=== PATIENT | female | born 1930 | race Caucasian/White ===

== ENCOUNTER → 2016-12-06 | Outpatient (CLI) | payer BC ==
[~2016-12-06] MED LIST: ACET-749 PO; CALC12502 PO; MULT-845 PO; OMEG10007 PO
--- NOTE | 2016-12-06 12:41 | MAMMOGRAPHY REPORT ---
BILATERAL DIGITAL SCREENING MAMMOGRAM WITH CAD: 12/06/2016 CLINICAL HISTORY: Routine screening. Patient has no complaints. TECHNIQUE: Current study was also evaluated with a Computer Aided Detection (CAD) system. Bilatera l CC and MLO views were obtained. COMPARISON: Comparison is made to exams dated: 12/04/2015 mammogram, 12/03/2014 mammogram, 12/21/2013 ultrasound, 06/21/2013 ultrasound, 12/21/2012 ultrasound, and 12/21/2013 mammogram - [facility]. BREAST COMPOSITION: The tissue of both breasts is heterogeneously dense, which may obscure small ma sses. FINDINGS: No suspicious masses, calcifications, or areas of architectural distortion are noted in e ither breast. There has been no significant interval change compared to prior exams. Bilateral lakesha gn-appearing calcifications are not significantly changed. Asymmetry in the left central breast is not significantly changed and consistent with postsurgical changes. IMPRESSION: ACR BI-RADS CATEGORY 2: BENIGN There is no mammographic evidence of malignancy. A 1 year screening mammogram is recommended. The p atient will receive written notification of the results. Approximately 10% of breast cancers are not detected with mammography. A negative mammographic repor t should not delay biopsy if a clinically suggestive mass is present. Desi Menezes M.D. /:12/06/2016 12:20:21 Gas Pumper: Ana Lilia Montgomery, [facility] letter sent: Normal 1/2 BI-RADS Code: ACR BI-RADS Category 2: Benign
== END | disposition home or self-care (01) ==
LOC: C.MAMM 10:23
PROVIDERS: ATTEND Internal Medicine Geriatric Medicine
DX: Z12.31 Encounter for screening mammogram for malignant neoplasm of breast (principal)

== ENCOUNTER → 2017-02-09 | Outpatient (CLI) | payer BC ==
[2017-02-09 17:28] LABS: URINE APPEARANCE TURBID (CLEAR); URINE BILIRUBIN NEG (NEG); URINE COLOR YELLOW; URINE NITRITE POS (NEG); URINE SPECIFIC GRAVITY 1.009 (1.000-1.030); UROBILINOGEN NEG (NEG)
[2017-02-09 17:37] LABS: MANUAL MICROSCOPIC REQUIRED? NO; REVIEW REQ? YES
== END | disposition home or self-care (01) ==
LOC: C.LABBC 11:17
PROVIDERS: ATTEND Internal Medicine
DX: R39.9 Unspecified symptoms and signs involving the genitourinary system (principal); N39.0 Urinary tract infection, site not specified; A49.8 Other bacterial infections of unspecified site

== ENCOUNTER → 2017-03-02 | Outpatient (CLI) | payer BC ==
--- NOTE | 2017-03-03 06:27 | PAP/PSG TECHNICIAN REPORT ---
[facility] Metal Storage Worker Polysomnogram Report Study name: None Report date: 03/03/2017 Study date: 03/02/2017 Referring Physician: THANG SAHNI M.D. Name: IVY RENDON Interpreting Physician: Main Rivera M.D. Date of : 1930 Metal Storage Worker: Aviva Lovell RPSGT. Sex: Female Age: 86 Study Type: PSG PAP Weight: 142 lbs Height: 86 years, Height 5' 6" BMI: 22.92 Medications: CALCIUM 500 MG, VIT D3 1000 UNIT, CRANBERRY 4200 MG, STOOL SOFTENER, FISH OIL 1000 MG, CENTRUM SILVER, MIRALAX, SYSTANE EYEDROPS, MELATONIN 10 MG Patient History 86 yr-old female here for a new CPAP treatment study. She was found to be positive for mild ABDIRASHID via a home sleep study in January 2016. Her AHI was 6.9. She chose an AirFit F10 full face mask size medium from [employer]. The test was started on room air and 4 CMH2O. ETCO2 testing was not utilized during this study. Room 7 Parameters Monitored NPSG: E1-M2, E2-M1, Fp1-M2, Fp2-M1, F3-M2, F4-M2, F4-M1, C3-M2, C4-M2, C4-M1, O1-M2, O2-M2, O2-M1, T3-M2, T4-M1, P3-M2, P4-M1, CHIN1, CHIN2, HR, EKG, Legs, PFLOW, SNOR, FLOW, CFLOW, Tidal Volume, THOR, ABDO, SpO2, PLTH, CPRESS, ETCO2 Wave, ETCO2, pH Sleep Architecture Sleep Stages Time at Lights Off 11:15:31 PM STAGES Time (min.) TST (%) Time at Lights On 5:32:01 AM Wake 182.0 -- Total Recording Time (TRT) 376.50 min. N1 30.5 16 Total Sleep Period (TSP) 364.0 min. N2 118.0 61 Total Sleep Time (TST) 194.5min. N3 7.5 4 Awake Time 182.0 min. REM 38.5 20 Wake after Sleep Onset 169.5 min. Sleep Efficiency (SE) 52 % Sleep Onset Latency (JOSEPH) 12.5 min. Number of Stage 1 Shifts None Awakenings 13 Stage Changes 73 Number of REM periods 2 REM 38.5 20 REM Latency 58.5 min. NREM 156.0 80 Body Position Analysis Supine Right Left Side Prone Vertical Total Sleep Time (min.) 55.2 0.0 194.0 194.00 0.0 0.0 Total Sleep Time (%) 0% 0% 100% 100 0% N/A% Total Sleep Time REM (min.) 0.0 0.0 38.5 None 0.0 0.0 Total Sleep Time NREM (min.) 0.5 0.0 155.5 None 0.0 0.0 Intermittent Wake (min.) 54.7 0.0 127.1 None 0.0 0.0 Total Sleep Period (%) 15% None None None None None Arousals Myoclonus (PLM) * Events Count Index Events Count Index Spontaneous 12 4 Events Awake (PLMW) 115 37.9 Respiratory 16 5.9 Events Asleep w/ Arousal (PLMA) 13 4.0 PLM 13 4 Events Asleep w/o Arousal (PLMS) 62 19.1 Snoring 4 1 Total Asleep 75 23.1 Total 45 14 Total 190 30 Respiratory Analysis * CA OA MA CH H RERA Total Count 0 7 0 0 3 11 10 Index 0.0 2.2 0.0 0 0.9 3 6.5 Mean Duration 0.0 26.6 0.0 0.00 41.2 17.2 23.8 Longest Duration 0.0 36.4 0.0 0.00 0.0 22.5 46.9 Respiratory Event Summary Total Supine ~Supine Right Left Prone REM NREM Apneas Count 7 1 6 N/A 6 N/A 0 7 Index 2.2 120 2 N/A 1.9 N/A 0 3 Hypopneas (4% Desat) Count 3 0 3 N/A 3 N/A 0 3 Index 0.9 0.0 1 N/A 0.9 N/A 0.0 1.2 Apneas & All Hypopneas Count 10 1 9 N/A 9 N/A 0 10 Index 3.1 120 3 N/A 3 N/A 0.0 3.8 Respiratory Events (Produce Inspector+All Hyp+RERA) Count 10 1 20 N/A 20 N/A 0 10 Index 6.5 120 6 N/A 6.2 N/A 1.6 7.7 Respiratory Related Arousal Count 16 1 18 N/A 18 N/A 1 18 Index 5.9 120 6 N/A 6 N/A 2 7 Snoring Analysis Supine Right Left Prone REM NREM Total Snore duration 11.5 min Snores count 2 N/A 454 N/A 14 442 456 Snore mean duration 1.5 Sec Snores index 240 N/A 140 N/A 21.8 170.0 140.7 TST with snoring (%) 5.9% Desaturation Event Summary: Minimum %SpO2 Event Count Mean/Min/Max Duration(sec.) Desaturation Index % Time In Bed > 90 8 32.1 / 24.3 / 40.5 1.3 99.8 86 - 90 0 N/A 0.0 0.2 81 - 85 0 N/A 0.0 0.0 76 - 80 0 N/A 0.0 0.0 71 - 75 0 N/A 0.0 0.0 66 - 70 0 N/A 0.0 0.0 61 - 65 0 N/A 0.0 0.0 56 - 60 0 N/A 0.0 0.0 51 - 55 0 N/A 0.0 0.0 < 50 0 N/A 0.0 0.0 Total REM NREM Awake <50% 0.0 min. 0.0 min. 0.0 min. 0.0 min. 51 - 60% 0.0 min. 0.0 min. 0.0 min. 0.0 min. 61 - 70% 0.0 min. 0.0 min. 0.0 min. 0.0 min. 71 - 80% 0.0 min. 0.0 min. 0.0 min. 0.0 min. 81 - 90% 0.8 min. 0.0 min. 0.5 min. 0.3 min. 91 - 100% 368.9 min. 38.5 min. 155.5 min. 174.9 min. Average 95 95 95 95 Minimum SpO2 89 93 89 90 Desaturation Event Index 1.3 0.0 3.1 0.0 # Desat. Events below 89% N/A N/A N/A N/A Time(%) with Saturation below 89% 0.0 0.0 0.0 0.0 Time(min.) with Saturation below 89% 0.0 0.0 0.0 0.0 Time (mins) REM (mins) NREM (mins) % of TST SpO2 Below 90% 3 N/A N3 0.0 SpO2 Below 88% 0 0 0 0 Heart Rate Analysis Min (bpm) Max (bpm) Average (bpm) Awake 57 75 65 NREM 56 74 64 REM 60 75 63 Overall 56 75 64 Supplemental O2 Values Minimum O2 level: None Value Start Time End Time Metal Storage Worker Comments Ms. Rendon slept in the left and supine positions. No cardiac arrhythmias were noted. PLMs were noted. No bruxism noted. CPAP was initiated at +4 CMH2O and up-titrated to a level of +9 CMH2O, Cflex 2. An AirFit F10 full face mask size medium from [employer] was used during titration. She awoke to use the restroom one time during the night. Ms. Rendon stated that she did not sleep as well as usual. The final report will be interpreted and signed by a sleep physician. The completed physician report will then be placed in the patient medical record Therapy Event: Therapy (cm H20) 4 5 6 8 9 Total Time at Pressure (min.) 17.5 262.0 24.8 9.4 62.8 TST at Pressure (min.) 5.0 95.5 24.3 8.9 60.8 # Periods 1 1 1 1 1 Sleep Onset (min.) 12.5 0.0 0.5 0.0 0.0 REM Onset (min.) N/A 53.5 N/A N/A 12.8 Sleep Efficiency % 28 36 98 94 96 Wakefulness (%) 71.6 63.5 2.0 5.3 3.2 Wakefulness (min.) 12.5 166.5 0.5 0.5 2.0 NREM 1 (%) 11.4 6.3 19.3 34.4 6.4 NREM 1 (min.) 2.0 16.5 4.8 3.2 4.0 NREM 2 (%) 17.0 22.9 72.7 60.3 49.9 NREM 2 (min.) 3.0 60.0 18.0 5.7 31.3 NREM 3 (%) 0.0 0.4 6.1 0.0 8.0 NREM 3 (min.) 0.0 1.0 1.5 0.0 5.0 REM (%) 0.0 6.9 0.0 0.0 32.6 REM (min.) 0.0 18.0 0.0 0.0 20.5 # Arousals 1 21 8 6 9 Arousal Index 12.1 13.2 19.8 40.5 8.9 # Snore 15 308 103 15 15 Snore Index 181.1 193.4 254.6 101.3 14.8 AHI 0.0 0.6 9.9 33.8 0.0 AHI Supine N/A 120.0 N/A N/A N/A AHI Non-Supine 0.0 0.0 9.9 33.8 0.0 NREM AHI 0.0 0.8 9.9 33.8 0.0 REM AHI N/A 0.0 N/A N/A 0.0 RDI 0.0 6.9 12.4 33.8 0.0 # Obstructive 0 1 4 2 0 # Central Ap 0 0 0 0 0 # Mixed 0 0 0 0 0 # Hypopneas 0 0 0 3 0 RERAS 0 10 1 0 0 Total Respiratory Events 0 11 5 5 0 Time Below SpO2 89.00% (min.) 0.0 0.0 0.0 0.0 0.0 Mean NREM SpO2 (%) 94 94 94 95 95 Mean REM SpO2 (%) N/A 95 N/A N/A 94 Mean Sleep SpO2 (%) 94 95 94 95 95 Min NREM SpO2 (%) 92 92 89 90 93 Min REM SpO2 (%) N/A 94 N/A N/A 93 Position Supine (min.) 0.0 0.5 0.0 0.0 0.0 Position Non-supine (min.) 5.0 95.0 24.3 8.9 60.8 LM Index Sleep 12.1 19.5 47.0 27.0 19.7 LM Index NREM 12.1 22.4 47.0 27.0 28.3 LM Index REM N/A 6.7 N/A N/A 2.9 Mean Heart Rate (bpm) 65 65 63 60 63 Min Heart Rate (bpm) 64 58 58 56 57
--- NOTE | 2017-03-04 11:50 | POLYSOMNOGRAPH REPORT ---
CLINICAL DATA: 86-year-old female with BMI of 29.[address] Romero Vera for a CPAP study. She recently had a home sleep study which showed mild sleep apnea with an NANCY of 6.9. SLEEP ARCHITECTURE: Total sleep period was 364 minutes. Total sleep time was 194.5 minutes divided between 156 minutes of non-REM sleep and 38.5 minutes of REM sleep. Sleep onset latency was 12.5 minutes. REM latency was 58.5 minutes. Sleep efficiency was 52%. Wake after sleep onset was markedly elevated at 169.5 minutes. Sleep consisted of stage N1 16%, N2 61%, N3 4%, and REM 20%. AROUSAL DATA: 45 arousals were recorded for an index of 14 per hour. PLM DATA: 75 limb movements during sleep were noted for an index of 22.1 per hour with an arousal index of 4 per hour. RESPIRATORY DATA: The AHI was 3.1. There were 3 hypopneic episodes. The mean duration of hypopnea was 41.2 seconds. OXIMETRY DATA: No hypoxemia was seen. Oxygen anette was 89%. Mean saturation was 95%. EKG: Heart rates ranged from 56-75 beats per minute. No arrhythmias were noted. CARE SERVICES MANAGER'S COMMENTS AND TREATMENT SUMMARY: The patient slept in the left and supine positions. She used an AirFit F10 full face mask size medium from [employer]. She was titrated up to 9 cm of water pressure, C-Flex setting #2. At her final pressure setting, she slept for 60.8 minutes with an AHI of 0. IMPRESSION: Mild sleep apnea/hypopnea corrected with CPAP 9 cm of water pressure, C-Flex setting #2, AirFit F10 full face mask size medium from [employer]. RECOMMENDATIONS: The patient could be started on the above noted treatment regimen and seen back in followup within 90 days to document efficacy and compliance. Clinical correlation is needed. [facility]
== END | disposition home or self-care (01) ==
LOC: C.NEUR 21:00
PROVIDERS: ATTEND Internal Medicine Geriatric Medicine
DX: G47.30 Sleep apnea, unspecified (principal)

== ENCOUNTER → 2017-12-14 | Outpatient (CLI) | payer BC ==
--- NOTE | 2017-12-15 14:04 | MAMMOGRAPHY REPORT ---
BILATERAL DIGITAL SCREENING MAMMOGRAM TOMOSYNTHESIS WITH CAD: 12/14/2017 CLINICAL HISTORY: Routine screening. Patient has no complaints. TECHNIQUE: Breast tomosynthesis in addition to standard 2D mammography was performed. Current study was also evaluated with a Computer Aided Detection (CAD) system. COMPARISON: Comparison is made to exams dated: 12/06/2016 mammogram, 12/04/2015 mammogram, 12/03/2014 m ammogram, 12/21/2013 ultrasound, 12/21/2013 mammogram, and 06/21/2013 ultrasound - [facility]. BREAST COMPOSITION: The tissue of both breasts is heterogeneously dense, which may obscure small mas ses. FINDINGS: There is a focal asymmetry in the 6:00 middle one third of the left breast, with subtle ass ociated architectural distortion. This was previously worked up in 2012 and 2013 and felt to represe nt postsurgical scarring. Additionally, reports from prior stereotactic biopsy and needle localizati on including surgical specimen from excisional biopsy performed in December and January 2007 described a l esion in the 6:00 left breast which was surgically excised. This is felt to be concordant with the p rior surgical excision and represent postsurgical scarring. Additionally, when comparing back to ashley or available 2-D views this asymmetry is stable dating back to at least 2008. No new suspicious mass , architectural distortion or cluster of microcalcifications is seen. IMPRESSION: ACR BI-RADS CATEGORY 1: NEGATIVE There is no mammographic evidence of malignancy. A 1 year screening mammogram is recommended. The pa tient will receive written notification of the results. Approximately 10% of breast cancers are not detected with mammography. A negative mammographic report should not delay biopsy if a clinically suggestive mass is present. Kendy Vivar M.D. ay/:12/14/2017 16:20:22 Progress Clerk: Ana Lilia Montgomery, [facility] letter sent: Normal /2 BI-RADS Code: ACR BI-RADS Category 1: Negative
== END | disposition home or self-care (01) ==
LOC: C.MAMM 13:46
PROVIDERS: ATTEND Internal Medicine Geriatric Medicine
DX: Z12.31 Encounter for screening mammogram for malignant neoplasm of breast (principal)

== ENCOUNTER → 2018-02-27 | Outpatient (CLI) | payer BC ==
[2018-02-27 17:23] LABS: BASO % 0.2 %; BASO ABS # 0.01 K/uL (0-0.2); EOS % 5.4 %; HEMATOCRIT 36.9 % (37-47); HEMOGLOBIN 12.2 g/dL (12.0-16.0); IG# 0.01 K/uL (0.00-0.02); LYMPH % 31.1 %; LYMPH ABS # 1.74 K/uL (1.2-3.4); MEAN CELL VOLUME 93.2 fL (80-100); MEAN CORPUSCULAR HEMOGLOBIN 30.8 pg (25-34); MEAN CORPUSCULAR HGB CONC 33.1 g/dl (32-36); MEAN PLATELET VOLUME 9.6 fL (7.4-10.4); MONO ABS # 0.39 K/uL (0.11-0.59); NEUT % 56.1 %; NEUT ABS # 3.15 K/uL (1.4-6.5); PLATELET COUNT 235 K/uL (130-400); RED CELL DISTRIBUTION WIDTH CV 14.3 % (11.5-14.5); RED CELL DISTRIBUTION WIDTH SD 48.5 fL (36.4-46.3)
[2018-02-27 19:14] LABS: BLOOD UREA NITROGEN 18 mg/dl (7-18); CALCIUM 8.5 mg/dl (8.5-10.1); CARBON DIOXIDE 30 mmol/L (21-32); CREATININE 0.85 mg/dl (0.60-1.20); GLUCOSE 102 mg/dl (70-99); POTASSIUM 3.7 mmol/L (3.5-5.1); SODIUM 139 mmol/L (136-145)
== END | disposition home or self-care (01) ==
LOC: C.LABBC 14:14
PROVIDERS: ATTEND Internal Medicine Geriatric Medicine
DX: Z00.00 Encounter for general adult medical examination without abnormal findings (principal); R41.81 Age-related cognitive decline; G47.30 Sleep apnea, unspecified; I10 Essential (primary) hypertension

== ENCOUNTER → 2018-03-02 | Outpatient (CLI) | payer BC ==
[~2018-03-02] MED LIST changes: -ACET-749 PO; +ACET300T3 PO
== END | disposition home or self-care (01) ==
LOC: C.LABBC 09:39
PROVIDERS: ATTEND Internal Medicine Geriatric Medicine
DX: R39.9 Unspecified symptoms and signs involving the genitourinary system (principal)

== ENCOUNTER → 2018-03-14 | Outpatient (CLI) | payer BC | END | disposition home or self-care (01) | LOC: C.LAB 16:57 | PROVIDERS: ATTEND Internal Medicine Geriatric Medicine | DX: N39.0 Urinary tract infection, site not specified (principal) ==

== ENCOUNTER → 2018-06-14 | Outpatient (CLI) | payer BC | END | disposition home or self-care (01) | LOC: C.LAB 18:35 | PROVIDERS: ATTEND Physician Assistant Medical | DX: R39.9 Unspecified symptoms and signs involving the genitourinary system (principal) ==

== ENCOUNTER 2019-07-25 19:15 | Inpatient (IN) ==
[2019-07-25] MEDS ORDERED: MoRPHine SULFATE 4 MG/ML 1 ML CARP\\VIAL IV STA (19:30)
[2019-07-25] MEDS ORDERED: ONDANSETRON INJ 2 MG/ML 2 ML VIAL IV STA (19:30)
[2019-07-25] MEDS ORDERED: SODIUM CHLORIDE 0.9% 1000ML 500 ML IV ONE ×2 (19:30→20:14)
[2019-07-25] MEDS ORDERED: dilTIAZem HCl 5 MG/ML 5 ML VIAL IV STA (19:42)
[2019-07-25] MEDS ORDERED: dilTIAZem HCL 125 MG in DEXTROSE 5% 100 ML IV SCH (19:45)
[2019-07-25 20:09] LABS: iSTAT Creatinine 1.1 mg/dl (0.6-1.3); iSTAT Hemoglobin 12.2 g/dl (12.0-16.0); iSTAT Ionized Calcium 1.16 mmol/l (1.12-1.32); iSTAT Potassium 4.7 mEq/L (3.3-5.0)
[2019-07-25 20:18] LABS: Hematocrit (blood only) 35.7 % (37-47); Hemoglobin 12.3 g/dL (12.0-16.0); Lymphocytes # (auto) 0.61 K/uL (1.2-3.4); Lymphocytes % (auto) 9.7 %; Mean Corpuscular Hemoglobin 32.3 pg (25-34); Mean Corpuscular Hgb Conc 34.5 g/dL (32-36); Mean Corpuscular Volume 93.7 fL (80-100); Mean Platelet Volume 9.1 fL (7.4-10.4); Monocytes # (auto) 0.08 K/uL (0.11-0.59); Monocytes % (auto) 1.3 %; Neutrophils # (auto) 5.58 K/uL (1.4-6.5); Platelet Count 341 K/uL (130-400); RDW Coefficient of Variation 13.5 % (11.5-14.5); RDW Standard Deviation 46.3 fL (36.4-46.3); Red Blood Count 3.81 M/uL (4.2-5.4); White Blood Count 6.27 K/uL (4.8-10.8)
[2019-07-25 20:20] LABS: Partial Thromboplastin Time 26.1 Seconds (21.0-31.0); Prothrombin Time 10.3 Seconds (9.0-12.0)
[2019-07-25 20:29] LABS: BUN Creatinine Ratio 19.7 (10-20); Blood Urea Nitrogen 24 mg/dl (7-18); Calcium 9.4 mg/dl (8.5-10.1); Carbon Dioxide 25 mmol/L (21-32); Chloride 101 mmol/L (98-107); Est GFR (Non-African American) 38.9; Glucose 231 mg/dl (70-99); Lipase 195 U/L (73-393); Potassium 4.5 mmol/L (3.5-5.1); Sodium 135 mmol/L (136-145)
[2019-07-25 20:34] LABS: Troponin I 0.019 ng/ml (0-0.045)
[2019-07-25] MEDS ORDERED: OPTIRAY 320 125ml IV PRN (21:13)
--- NOTE | 2019-07-25 21:15 | XRay Report ---
SINGLE VIEW CHEST CLINICAL HISTORY: Atypical chest pain. FINDINGS: 2 AP, portable, upright chest radiographs are compared to study dated 07/17/2019. The examin ation is degraded by portable technique and patient rotation. The heart is mildly enlarged. The pulmo nary vasculature is noncongested. Calcified mediastinal lymph nodes are again noted. Chronic intersti tial thickening is similar to previous. There is bibasilar atelectasis. No airspace consolidation or large pleural effusion is identified. A calcified granuloma is again seen at the left apex. No pneumo thorax is seen. The skeletal structures are osteopenic. The bony thorax is grossly intact. IMPRESSION: Mild cardiomegaly with no acute cardiopulmonary abnormality. Electronically signed by: Piter Bean M.D. 07/25/2019 9:13 PM
[2019-07-25] MEDS ORDERED: IOVERSOL 100ml IV PRN (21:37)
--- NOTE | 2019-07-25 21:40 | CT Scan Report ---
CT ANGIOGRAM OF THE CHEST CLINICAL HISTORY: Right-sided chest pain. COMPARISON STUDY: Chest x-ray dated 07/25/2019. TECHNIQUE: Following the IV administration of 119 cc of Optiray 320, CT angiogram of the chest was pe rformed from the upper abdomen to the thoracic inlet utilizing the pulmonary embolus protocol. Images are reviewed in the axial, sagittal, and coronal planes. 3-D MIPS images are created and assessed. I V contrast was administered without complication. A dose lowering technique was utilized adhering to the principles of ALARA. CT DOSE: 249.41 mGy.cm FINDINGS: Thyroid: Imaged portions of the thyroid gland are normal in size and attenuation. Thoracic aorta: There is atherosclerotic calcification of the thoracic aorta, which is normal in gay michelle and demonstrates 4-vessel variant arch anatomy. 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 No dissection is seen. Pulmonary vasculature: The pulmonary trunk is normal in caliber. There are no filling defects identif ied in main, lobar, or segmental pulmonary branches to suggest pulmonary embolus. Heart: The heart is mildly enlarged and without pericardial effusion. There are coronary artery calci fications. Lungs and pleural spaces: There is no airspace consolidation, pleural effusion, or pneumothorax. The trachea and central airways are clear. Foci of scarring/atelectasis are present at both lung bases. T here are numerous calcified granulomas. There is a pathologically indeterminant 8 mm pulmonary nodule in the left lower lobe seen on image #117. Mediastinum: There are numerous calcified mediastinal lymph nodes. No mediastinal adenopathy is seen. Zohreh: Clear. Axillae: There is no axillary lymphadenopathy. Upper abdomen: There are calcified granulomas present in the liver and spleen. Partially visualized u pper abdominal viscera is otherwise grossly unremarkable. Skeletal structures: The skeletal structures are osteopenic. There is a moderate and acute appearing compression fracture of T8. There is associated paravertebral edema. No retropulsed fragments are zee ntified. A moderate and age indeterminant compression deformity of T10 is also noted. Degenerative ch leroy and kyphoscoliosis are noted in the thoracic spine. No lytic or blastic bony lesions are seen. Soft tissues: There are indeterminant foci of gas within the right paraspinous musculature. No inflam matory change or fluid collection is identified. IMPRESSION: 1. There is no evidence of pulmonary embolus in the main, lobar, or segmental pulmonary arteries. 2. There is no airspace consolidation, pleural effusion, or pneumothorax. 3. There is a moderate and acute appearing compression fracture of T8. Paravertebral edema is noted a t this level. No retropulsed fragments are identified. 4. A moderate compression deformity of T10 is age indeterminant. 5. There are tiny foci of gas within the right paraspinous musculature, possibly related to the recen t compression fracture. No inflammatory change or fluid collection is seen. 6. There is an 8 mm pathologically indeterminant pulmonary nodule at the left lung base. Consider pre cautionary follow-up as per the Fleischner criteria. See below. 7. An aberrant right subclavian artery is incidentally noted. 8. Additional findings as above. Please refer to below summary of Fleischner criteria recommendations for follow-up of incidental CT n odules (Yanni Ernst, Guidelines for management of small pulmonary nodules detected on CT scans: A sta tement from the Fleischner Society, Radiology 237: [phone].) SOLID NODULES Solitary nodule size: <6 mm * low risk patients: no follow-up needed * high risk patients: optional CT at 12 months Solitary nodule size: 6-8 mm * low risk patients: follow-up at 6-12 months, then consider further follow-up at 18-24 months * high risk patients: initial follow-up CT at 6-12 months and then at 18-24 months if no change Solitary nodule size: >8 mm * either low or high risk patients - consider follow-up CT at 3 months, and/or CT-PET, and/or biopsy Multiple nodules size: <6 mm * low risk patients: no routine follow-up * high risk patients: optional CT at 12 months Multiple nodules size: 6-8 mm * low risk patients: follow-up at 3-6 months, then consider further follow-up at 18-24 months * high risk patients: follow-up at 3-6 months, then at 18-24 months if no change Multiple nodules size: >8 mm * low risk patients: follow-up at 3-6 months, then consider further follow-up at 18-24 months * high risk patients: follow-up at 3-6 months, then at 18-24 months if no change Note: newly detected indeterminate nodule in persons 35 years of age or older. * low risk patients: minimal or absent history of smoking and/or other known risk factors * high risk patients: history of smoking or of other known risk factors (e.g. first degree relative with lung cancer, or exposure to asbestos, radon, uranium) * if a nodule up to 8 mm is partly solid or is ground glass further follow-up is required after 24 m onths to exclude possible slow growing adenocarcinoma ([place]) SUBSOLID NODULES Solitary pure ground-glass nodule * nodule size <6 mm - no CT follow-up required * nodule size >=6 mm - follow-up CT at 6-12 months, then every 2 years until 5 years Solitary part-solid nodule * nodule size <6 mm - no CT follow-up required * nodule size >=6 mm - follow-up CT at 3-6 months. If unchanged, and solid component remains <6 mm, then annual follow-up for 5 years Multiple subsolid nodules * nodule size <6 mm - follow-up CT at 3-6 months, consider further follow-up at 2 and 4 years if sta ble * nodule size >=6 mm - follow-up CT at 3-6 months, subsequent management based on the most suspiciou s nodule(s) Electronically signed by: Piter Bean M.D. 07/25/2019 9:38 PM
[2019-07-25] MEDS ORDERED: HEPARIN SOD 5,000 UNIT/0.5 ML VIAL ONE (22:23)
[2019-07-25] MEDS: HEPARIN SODIUM/DEXTROSE 25,000 UNITS/500 ML BAG IV SCH (22:56)
--- NOTE | 2019-07-25 23:04 | History & Physical Report ---
Date of Service July 25, 2019 Assessment & Plan (1) Atrial fibrillation with RVR: Ms. Rendon is a very pleasant 89 year old female with a past medical history of T8 and T10 compression fractures, osteoarthritis, aortic regurgitation, breast cancer s/p lumpectomy who presents to the emergency department due to intractable back pain, and was incidentally found to be in atrial fibrillation. ED course: 1L NS bolus, 10mg IV cardizem, heparin drip Atrial Fibrillation -admit to telemetry -no hx of prior -received 10mg IV cardizem in ED which improved HR -5mg IV Lopressor prn HR >120 -ECHO ordered -potassium level 4.5, magnesium level ordered for AM -CHADS-VASc score is 3 - pt would benefit from anticoagulation -heparin drip initiated in ED, will continue this T8 and T10 compression fractures -seen on CTA today -pain control with lidocaine patches, voltaren gel, and scheduled tylenol -consider addition of prn tramadol if above regimen is ineffective AUSTYN -creatinine increased from baseline of <1 to 1.23 -potentially related to poor p.o. intake plus NSAIDs (pt taking Aleve daily due to back pain) -avoid nephrotoxic agents, continue to monitor Constipation -continue home daily miralax (increase to BID), and colace -milk of mag prn Pulmonary Nodule -seen incidentally on CTA today -> 8mm in lower left lobe -discussed w/patient -pt is low risk given no smoking hx -> per Fleischner criteria -> "follow-up at 6-12 months, then consider further follow-up at 18-24 months" Hypertension -listed on chart, however pt not on medications for this Hx of Insomnia -pt reports she does not like to take her home trazodone Code status: FULL DVT Prophylaxis: on heparin drip Disposition: admit to telemetry (2) Acute thoracic back pain: (3) Age-related cognitive decline: (4) Aortic regurgitation: (5) Gastroesophageal reflux disease: (6) Hypertension: (7) Insomnia: (8) Compression fracture: History of Present Illness Chief Complaint: Afib, back pain Primary Care Provider: Elliot Vera MD Ms. Rendon is a very pleasant 89 year old female with a past medical history of T8 and T10 compression fractures, osteoarthritis, aortic regurgitation, breast cancer s/p lumpectomy who presents to the emergency department due to intractable back pain, and was incidentally found to be in atrial fibrillation. She reports that she saw today for her compression fractures, who administered an injection into her back for this, and prescribed lidocaine patches. She reports that the pain from her compression fractures began approximately 3 weeks ago, the morning after she washed the windows of her house. She states that in addition to the lidocaine patches, she has been using Aleve daily for the past 1 week, as well as extra strength Tylenol, however is struggling with the level of pain she is in. She reports decreased appetite due to the pain. She denies a prior history of atrial fibrillation. She denies chest pain, palpitations, and states that she has no prior history of an DE. She does report that her neighbor thought she was more short of breath recently. She denies fever, chills, or cough. She does endorse constipation, and states that she is still having difficulty with this despite taking miralax and colace daily. Past medical history: T8 and T10 compression fractures, osteoarthritis, aortic regurgitation, breast cancer s/p lumpectomy in 2006 Past surgical history: Bladder prolapse surgery, hysterectomy Medications: Tylenol, calcium and vitamin D, cranberry, Colace, multivitamin, MiraLAX Allergies: Penicillin Social history: Lives at home with her . Non-smoker, no recreational drugs. Occasional glass of keesha before bedtime for sleep. Allergies Allergy/AdvReac Type Severity Reaction Status Date / Time codeine Allergy Severe GI SYMPTOMS Verified 07/25/19 20:37 Penicillins Allergy Severe ANAPHYLAXIS Verified 07/25/19 20:37 Home Medications Home Medications Medication Instructions Recorded Confirmed Type acetaminophen 500 mg tablet 1,000 mg PO TID PRN #90 tab 04/10/19 07/25/19 History calcium carbonate 500 mg (1,250 1 tab PO BID tab 04/10/19 07/25/19 History mg)-vitamin D3 200 unit tablet cholecalciferol (vitamin D3) 1,000 1,000 units PO DAILY #90 cap 04/10/19 07/25/19 History unit capsule garlic 1,000 mg capsule 1,000 mg PO DAILY 04/10/19 07/25/19 History multivit with 1 tab PO DAILY 04/10/19 07/25/19 History zomabgro-sehe-TU-lutein 8 mg iron-400 mcg-300 mcg tablet polyethylene glycol 3350 17 17 gm PO QPM gm 04/11/19 07/25/19 History gram/dose oral powder trazodone 50 mg tablet 25 mg PO HS PRN #30 tab 04/11/19 07/25/19 History docusate sodium 100 mg capsule 100 mg PO TID cap 04/16/19 07/25/19 History cranberry 450 mg PO TID 07/25/19 07/25/19 History omega 2-lep-jin-fish oil [[place]-3 1 cap PO DAILY 07/25/19 07/25/19 History Fish Oil] Past Med/Surg History Medical History Lumbar spondylosis (Acute) Acute thoracic back pain (Acute) Osteopenia of both forearms (Chronic) Age-related cognitive decline (Acute) Aortic regurgitation (Acute) Gastroesophageal reflux disease (Acute) Hypertension (Acute) Incomplete emptying of bladder (Acute) Insomnia (Acute) Mild sleep apnea (Chronic) Osteoarthritis (Acute) Recurrent UTI (Acute) Urinary incontinence (Acute) Fracture of T10 vertebra Fracture of T8 vertebra Surgical History H/O: hysterectomy History of bunionectomy Family History Other Cancer Social History Preferred Language: Kiswahili Communication Ability: Effective Manager Convention Required: No Beliefs That Will Affect Care: None marital status: Current Living Situation: Spouse Current Living Situation Comment: in a split level home Other Information That Helps Us Care for You: No Feels Safe at Home: Yes Safety Concerns: Feels Safe At This Time Smoking Status: Never smoker Hx Alcohol Use: Yes Alcohol type: beer, wine and hard liquor Hx Substance Use: No caffeine: No Seatbelt Use: always Review of Systems Constitutional: no fever, no chills, no fatigue and no weakness Respiratory: no cough and no wheezing Cardiovascular: no chest pain, no palpitations, no lightheadedness, no syncope, no edema and no calf pain Gastrointestinal: + constipation; no abdominal pain, no nausea and no vomiting Genitourinary: no dysuria Musculoskeletal: + back pain Physical Exam Constitutional: WD/WN, vitals as above + frail appearing, cooperative and comfortable Eyes: PERRL, conjunctivae normal, anicteric sclerae Respiratory: normal respiratory effort, lungs clear to auscultation Cardiovascular: Rate/Rhythm: + tachycardic and + irregularly irregular Extremities: normal capillary refill; no calf tenderness and no edema Gastrointestinal (Abdomen): Inspection/Auscultation: + abdomen distended Percussion/Palpation: abdomen soft; abdomen nontender, no guarding and abdomen not rigid Skin: no rashes, warm and dry Neurologic: moves all extremities and awake 5/5 power in UE and LE, sensation intact Psychiatric: A+Ox3, euthymic affect slightly forgetful at times, goes off on tangents Results & Data Vital Signs (Past 12 Hours) Vital Signs Temp Pulse Pulse Resp BP BP Pulse Ox 07/25/19 22:39 103 H 20 111/61 96 07/25/19 21:24 102 H 20 119/71 95 07/25/19 20:44 108 H 20 109/59 L 97 07/25/19 20:14 96 07/25/19 20:13 88 20 92/59 L 96 07/25/19 19:16 36.5 C 108 H 20 98/49 L 96 Code Status & VTE Plan VTE Prophylaxis Plan VTE Prophylaxis will be ordered: Yes Supervising Physician Co-Signing Physician Notes Patient was seen and examined by me personally. I reviewed the chart, the orders and discussed the case in detail with Dr. Callum Dunne MD . I read this H&P and agree with its contents to entirety. PG Care Time/CCT Total # of Minutes Spent Total Time Spent with Patient: Total time spent is greater than 50% in coordination of care (as documented) at patient's floor/unit and/or counseling patient: Resident Activity Tracking Resident Involvement: Resident Care Provided Care Provided: Adult Hospital Medicine
--- NOTE | 2019-07-25 23:34 | Emergency Department Note ---
Entered by Kayla Mendoza acting as a scribe for History of Present Illness General Chief complaint: Back Injury/Pain Stated complaint: BACK PAIN Time Seen by Provider: 07/25/19 19:24 Source: patient History of Present Illness Provider complaint: back pain Onset (ago): week(s) 3 Location: back Pain Consistency: + other (worsening) Maximum Pain Intensity: 6 Relieved By: + other (sitting up at an incline) Exacerbated By: + other (lying flat) Associated symptoms: + denies other symptoms (hematuria, hematochezia) and + other (diagnosed with spinal fracture 3 weeks ago, numbness in left hand, small bowel movement yesterday and no bowel movement today); no nausea/vomiting Treatments prior to arrival: other (Lidocaine patch, 2 doses of Laxatives) The patient is an 89 year old female who presents to the ED with complaints of worsening back pain that started 3 weeks ago. The patient states that she was diagnosed with a spinal fracture 3 weeks ago but has been controlling the pain with Lidocaine patches, Aleve and Ibuprofen. The patient notes that she put a Lidocaine patch on at 1600 today, but it has not helped. The patient notes that lying flat exacerbated her pain, but sitting up on an incline relieves her pain. The patient states that she felt numbness in her left hand today. The patient notes that she had a very small bowel movement yesterday and no bowel movements today. The patient states that she took 2 doses of laxatives prior to arrival. The patient denies hematuria, hematochezia, nausea and vomiting. Home Medications Home Medications Medication Instructions Recorded Confirmed Type acetaminophen 500 mg tablet 1,000 mg PO TID PRN #90 tab 04/10/19 07/25/19 History calcium carbonate 500 mg (1,250 1 tab PO BID tab 04/10/19 07/25/19 History mg)-vitamin D3 200 unit tablet cholecalciferol (vitamin D3) 1,000 1,000 units PO DAILY #90 cap 04/10/19 07/25/19 History unit capsule garlic 1,000 mg capsule 1,000 mg PO DAILY 04/10/19 07/25/19 History multivit with 1 tab PO DAILY 04/10/19 07/25/19 History pvncqqcw-ovsq-CC-lutein 8 mg iron-400 mcg-300 mcg tablet polyethylene glycol 3350 17 17 gm PO QPM gm 04/11/19 07/25/19 History gram/dose oral powder trazodone 50 mg tablet 25 mg PO HS PRN #30 tab 04/11/19 07/25/19 History docusate sodium 100 mg capsule 100 mg PO TID cap 04/16/19 07/25/19 History cranberry 450 mg PO TID 07/25/19 07/25/19 History omega 5-pfs-ils-fish oil [Hilger-3 1 cap PO DAILY 07/25/19 07/25/19 History Fish Oil] Allergies Allergy/AdvReac Type Severity Reaction Status Date / Time codeine Allergy Severe GI SYMPTOMS Verified 07/25/19 20:37 Penicillins Allergy Severe ANAPHYLAXIS Verified 07/25/19 20:37 Past Med/Surg History Medical History Lumbar spondylosis (Acute) Acute thoracic back pain (Acute) Osteopenia of both forearms (Chronic) Age-related cognitive decline (Acute) Aortic regurgitation (Acute) Gastroesophageal reflux disease (Acute) Hypertension (Acute) Incomplete emptying of bladder (Acute) Insomnia (Acute) Mild sleep apnea (Chronic) Osteoarthritis (Acute) Recurrent UTI (Acute) Urinary incontinence (Acute) Fracture of T10 vertebra Fracture of T8 vertebra Surgical History H/O: hysterectomy History of bunionectomy Family History Other Cancer Social History marital status: Current Living Situation Comment: in a split level home Feels Safe at Home: Yes Smoking Status: Never smoker caffeine: No Seatbelt Use: always Review of Systems See HPI for pertinent positives & negatives. and A total of 10 systems reviewed and were otherwise negative Physical Exam Vital Signs Vital Signs - 24 hr 07/25/19 19:16 07/25/19 20:13 07/25/19 20:14 Temperature 36.5 C Temperature Source Oral Sepsis Recent Fever Within 48 Hours No Sepsis Action Taken by Nursing No Action Required Pulse Rate 108 H Pulse Rate [Apical] 88 Pulse Rhythm [Apical] Regular Pulse Strength [Apical] Respiratory Rate 20 20 Respiratory Effort / Characteristics Non-Labored Spontaneous Respiratory Depth Normal Normal Blood Pressure 98/49 L Blood Pressure [Left Arm] 92/59 L Blood Pressure Mean 65 Blood Pressure Mean [Left Arm] 70 Blood Pressure Position Sitting Blood Pressure Position [Left Arm] Pulse Oximetry 96 96 96 Oxygen Delivery Method Room Air Room Air Room Air 07/25/19 20:44 07/25/19 21:24 07/25/19 22:39 Temperature Temperature Source Sepsis Recent Fever Within 48 Hours Sepsis Action Taken by Nursing Pulse Rate Pulse Rate [Apical] 108 H 102 H 103 H Pulse Rhythm [Apical] Irregular Regular Irregular Pulse Strength [Apical] Normal Respiratory Rate 20 20 20 Respiratory Effort / Characteristics Non-Labored Respiratory Depth Normal Normal Blood Pressure Blood Pressure [Left Arm] 109/59 L 119/71 111/61 Blood Pressure Mean Blood Pressure Mean [Left Arm] 75 87 77 Blood Pressure Position Blood Pressure Position [Left Arm] Sitting Pulse Oximetry 97 95 96 Oxygen Delivery Method Room Air Room Air Room Air GENERAL: She is oriented to person, place, and time. She appears well-developed and well-nourished. She does not appear distressed. HENT: Exam performed. \u00b7 Head: Normocephalic and atraumatic. \u00b7 Right Ear: External ear normal. No mastoid tenderness. \u00b7 Left Ear: External ear normal. No mastoid tenderness. \u00b7 Mouth/Throat: The oropharynx is clear and moist. No trismus in the jaw. No dental abscesses or uvula swelling. No oropharyngeal exudate or tonsillar abscesses. EYES: Conjunctivae and EOM are normal. Pupils are equal, round, and reactive to light. Right eye exhibits no discharge. Left eye exhibits no discharge. No scleral icterus. NECK: Normal range of motion. Neck supple. No JVD present. No spinous process tenderness present. No carotid bruit present. No rigidity. No tracheal deviation and normal range of motion present. No Brudzinski's sign and no Kernig's sign noted. CV: Tachycardic rate, irregular rhythm, normal heart sounds and intact distal pulses. There is no peripheral edema. Palpable radial pulses bue. PULM/CHEST: Effort normal and breath sounds normal. No respiratory distress. No stridor. She has no wheezes. She has no rales. Chest Wall: She exhibits no tenderness. ABD: The abdomen is soft. Bowel sounds are normal. She has no distension. No mass is present. There is no tenderness. There is no rebound, no guarding, no Yancey's sign and no tenderness at McBurney's point. Rovsig negative MUSC/SKEL: No cervical or lumbar spine tenderness. Pain over palpation of T8 and T10, confirming chief complaint. Lidocaine patch on back. Normal range of motion. There is no peripheral edema, tenderness or deformity. LYMPH: No cervical adenopathy. NEURO: She is alert and oriented to person, place, and time. She has normal strength. No cranial nerve deficit or sensory deficit. Coordination and gait normal. GCS eye subscore is 4. GCS verbal subscore is 5. GCS motor subscore is 6. cerbellar tests wnl. SKIN: Skin is warm and dry. She is not diaphoretic. PSYCH: She has a normal mood and affect. Her behavior is normal. Judgment and thought content normal. Course 1922: EMR reviewed. Patient has X-Ray done on July 20 of thoracic spine which showed compression fracture of T8 and T10. 1924: Past medical records reviewed. The patient was evaluated in room B12. A complete history and physical exam was performed. The patient was found to be in a tachycardic and irregular rate on the electronic device monitor. EKG showed A. fib with RVR. Large-bore IV access was immediately obtained and patient was pushed 10mg bolus of Cardizem, status post bolus of Cardizem heart rate has improved on monitor 95-115. 2005: I reevaluated the patient and her pain has improved. 2025: The patient's blood pressure is 115/67 and she remains in atrial fibrillation with heart rate 95-105. We are obtaining CT of chest. 2147: Vitals are stable. After Cardizem bolus, blood pressure dropped slightly and heart rate normalized. Labs and imaging are within normal limits. Heart rate is within normal limits at this time, Cardizem drip will be held. She will be treated with Heparin for atrial fibrillation. Patient will be admitted to Dr. Rosado's service. I discussed the patient's case with Dr. Rosado- [facility], Hospit ali. He will accept the patient for further management. Consultations Consultation #1: I discussed the patient's case with Dr. Shelton [facility], Hospitalist. He will accept the patient for further management. Time: 22:20 Administered Medications Diltiazem HCl 125 mg/ Dextrose 125 mls @ 5 mls/hr IV .Q24H [facility]; Protocol Stop: 08/24/19 19:44 Last Admin: 07/25/19 23:04 Dose: Not Given Documented by: [id number] Heparin Sodium/Dextrose (Heparin Sodium/Dextrose) 25,000 units in 500 mls @ 0.02 mls/hr IV .Q24H [facility]; Protocol Stop: 08/24/19 21:59 Last Admin: 07/25/19 22:56 Dose: 20 units/hr, 0.4 mls/hr Documented by: [id number] Cosigned by: [id number] Ioversol (Optiray 320 125ml) 119 ml IV ONCE PRN PRN Reason: Interaction Checking Stop: 07/29/19 21:12 Last Admin: 07/25/19 21:14 Dose: 119 ml Documented by: [id number] Ioversol (Optiray 320 100ml) 93 ml IV ONCE PRN PRN Reason: Interaction Checking Stop: 07/29/19 21:36 Last Admin: 07/25/19 21:38 Dose: 93 ml Documented by: [id number] Discontinued Medications Diltiazem HCl (Cardizem) 10 mg IV NOW STA Stop: 07/25/19 19:43 Last Admin: 07/25/19 19:51 Dose: 10 mg Documented by: [id number] Cosigned by: [id number] Heparin Sodium (Porcine) (Heparin Sodium (Porcine)) Confirm Administered Dose 5,000 units .ROUTE .STK-MED ONE Stop: 07/25/19 22:24 Last Admin: 07/25/19 22:56 Dose: 4,000 units Documented by: [id number] Cosigned by: [id number] Heparin Sodium/Dextrose () 1 ea IV NOW STA; Protocol Stop: 07/25/19 21:52 Last Admin: 07/25/19 23:02 Dose: Not Given Documented by: [id number] Sodium Chloride (Nss 1000ml) 500 mls @ 999 mls/hr IV .Q31M ONE Stop: 07/25/19 20:00 Last Infusion: 07/25/19 21:28 Dose: 0 mls/hr Documented by: [id number] Admin: 07/25/19 19:52 Dose: 999 mls/hr Documented by: [id number] Sodium Chloride (Nss 1000ml) 500 mls @ 999 mls/hr IV .Q31M ONE Stop: 07/25/19 20:44 Last Infusion: 07/25/19 21:29 Dose: 0 mls/hr Documented by: [id number] Admin: 07/25/19 20:45 Dose: 999 mls/hr Documented by: [id number] Morphine Sulfate (Morphine Sulfate) 4 mg IV NOW STA Stop: 07/25/19 19:31 Last Admin: 07/25/19 23:01 Dose: Not Given Documented by: [id number] Ondansetron HCl (Zofran) 4 mg IV NOW STA Stop: 07/25/19 19:31 Last Admin: 07/25/19 23:01 Dose: Not Given Documented by: [id number] Medical Decision Making Medical Records Attestation: I reviewed the patient's medical records. Home Medications Current Medication List: was personally reviewed by me Laboratory Data Attestation: I reviewed the patient's lab results. Result diagrams: 07/25/19 19:45 07/25/19 19:45 Lab Results 07/25/19 07/25/19 07/25/19 Range/Units 19:45 19:45 19:45 WBC 6.27 (4.8-10.8) K/uL RBC 3.81 L (4.2-5.4) M/uL Hgb 12.3 (12.0-16.0) g/dL POC Hgb (12.0-16.0) g/dl Hct 35.7 L (37-47) % POC Hct (37-47) % MCV 93.7 (80-100) fL MCH 32.3 (25-34) pg MCHC 34.5 (32-36) g/dL RDW Std Deviation 46.3 (36.4-46.3) fL RDW Coeff of Ksenia 13.5 (11.5-14.5) % Plt Count 341 (130-400) K/uL MPV 9.1 (7.4-10.4) fL Immature Gran % (Auto) 0.0 % Neut % (Auto) 89.0 % Lymph % (Auto) 9.7 % [place] % (Auto) 1.3 % Eos % (Auto) 0.0 % Baso % (Auto) 0.0 % Immature Gran # (Auto) 0.00 (0.00-0.02) K/uL Neut # (Auto) 5.58 (1.4-6.5) K/uL Lymph # (Auto) 0.61 L (1.2-3.4) K/uL [place] # (Auto) 0.08 L (0.11-0.59) K/uL Eos # (Auto) 0.00 (0-0.5) K/uL Baso # (Auto) 0.00 (0-0.2) K/uL PT 10.3 (9.0-12.0) Seconds INR 1.0 (0.9-1.1) APTT 26.1 (21.0-31.0) Seconds PTT Ratio 1.0 POC Sodium (135-144) mEq/L Sodium 135 L (136-145) mmol/L POC Potassium (3.3-5.0) mEq/L Potassium 4.5 (3.5-5.1) mmol/L POC Chloride (101-112) mEq/L Chloride 101 (98-107) mmol/L Carbon Dioxide 25 (21-32) mmol/L POC Total CO2 (24-31) mEq/l Anion Gap 8.0 (3-11) POC Anion Gap (16-25) mmol/L POC BUN (7-18) mg/dl BUN 24 H (7-18) mg/dl Creatinine 1.23 H (0.6-1.2) mg/dl POC Creatinine (0.6-1.3) mg/dl Est Cr Clr Drug Dosing Not Reportable Est GFR ( Amer) 45.0 Est GFR (Non-Af Amer) 38.9 BUN/Creatinine Ratio 19.7 (10-20) Glucose 231 H (70-99) mg/dl POC Glucose (other) (70-99) mg/dl Calcium 9.4 (8.5-10.1) mg/dl POC Ioniz Calcium Cameron (1.12-1.32) mmol/l POC Troponin I (0-0.045) ng/ml Troponin I 0.019 (0-0.045) ng/ml Lipase 195 (73-393) U/L 07/25/19 07/25/19 Range/Units 19:54 19:57 WBC (4.8-10.8) K/uL RBC (4.2-5.4) M/uL Hgb (12.0-16.0) g/dL POC Hgb 12.2 (12.0-16.0) g/dl Hct (37-47) % POC Hct 36 L (37-47) % MCV (80-100) fL MCH (25-34) pg MCHC (32-36) g/dL RDW Std Deviation (36.4-46.3) fL RDW Coeff of Ksenia (11.5-14.5) % Plt Count (130-400) K/uL MPV (7.4-10.4) fL Immature Gran % (Auto) % Neut % (Auto) % Lymph % (Auto) % [place] % (Auto) % Eos % (Auto) % Baso % (Auto) % Immature Gran # (Auto) (0.00-0.02) K/uL Neut # (Auto) (1.4-6.5) K/uL Lymph # (Auto) (1.2-3.4) K/uL [place] # (Auto) (0.11-0.59) K/uL Eos # (Auto) (0-0.5) K/uL Baso # (Auto) (0-0.2) K/uL PT (9.0-12.0) Seconds INR (0.9-1.1) APTT (21.0-31.0) Seconds PTT Ratio POC Sodium 134 L (135-144) mEq/L Sodium (136-145) mmol/L POC Potassium 4.7 (3.3-5.0) mEq/L Potassium (3.5-5.1) mmol/L POC Chloride 100 L (101-112) mEq/L Chloride (98-107) mmol/L Carbon Dioxide (21-32) mmol/L POC Total CO2 25 (24-31) mEq/l Anion Gap (3-11) POC Anion Gap 14.0 L (16-25) mmol/L POC BUN 26 H (7-18) mg/dl BUN (7-18) mg/dl Creatinine (0.6-1.2) mg/dl POC Creatinine 1.1 (0.6-1.3) mg/dl Est Cr Clr Drug Dosing Est GFR ( Amer) Est GFR (Non-Af Amer) BUN/Creatinine Ratio (10-20) Glucose (70-99) mg/dl POC Glucose (other) 235 H (70-99) mg/dl Calcium (8.5-10.1) mg/dl POC Ioniz Calcium Cameron 1.16 (1.12-1.32) mmol/l POC Troponin I 0.03 (0-0.045) ng/ml Troponin I (0-0.045) ng/ml Lipase (73-393) U/L Imaging Data Radiologist's Impression: Radiology results as stated below per my review and the radiologist's interpretation: SINGLE VIEW CHEST CLINICAL HISTORY: Atypical chest pain. FINDINGS: 2 AP, portable, upright chest radiographs are compared to study dated 07/17/2019. The examination is degraded by portable technique and patient rotation. The heart is mildly enlarged. The pulmonary vasculature is noncongested. Calcified mediastinal lymph nodes are again noted. Chronic inters titial thickening is similar to previous. There is bibasilar atelectasis. No airspace consolidation or large pleural effusion is identified. A calcified granuloma is again seen at the left apex. No pneumothorax is seen. The skeletal structures are osteopenic. The bony thorax is grossly intact. IMPRESSION: Mild cardiomegaly with no acute cardiopulmonary abnormality. Electronically signed by: Piter Bean M.D. 07/25/2019 9:[address] ANGIOGRAM OF THE CHEST CLINICAL HISTORY: Right-sided chest pain. COMPARISON STUDY: Chest x-ray dated 07/25/2019. TECHNIQUE: Following the IV administration of 119 cc of Optiray 320, CT angiogram of the chest was performed from the upper abdomen to the thoracic inlet utilizing the pulmonary embolus protocol. Images are reviewed in the axial, sagittal, and coronal planes. 3-D MIPS images are created and assessed. IV contrast was administered without complication. A dose lowering technique was utilized adhering to the principles of ALARA. CT DOSE: 249.41 mGy.cm FINDINGS: Thyroid: Imaged portions of the thyroid gland are normal in size and attenuation. Thoracic aorta: There is atherosclerotic calcification of the thoracic aorta, which is normal in caliber and demonstrates 4-vessel variant arch anatomy. 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 No dissection is seen. Pulmonary vasculature: The pulmonary trunk is normal in caliber. There are no filling defects identified in main, lobar, or segmental pulmonary branches to suggest pulmonary embolus. Heart: The heart is mildly enlarged and without pericardial effusion. There are coronary artery calcifications. Lungs and pleural spaces: There is no airspace consolidation, pleural effusion, or pneumothorax. The trachea and central airways are clear. Foci of scarring/atelectasis are present at both lung bases. There are numerous calcified granulomas. There is a pathologically indeterminant 8 mm pulmonary nodule in the left lower lobe seen on image #117. Mediastinum: There are numerous calcified mediastinal lymph nodes. No mediastinal adenopathy is seen. Zohreh: Clear. Axillae: There is no axillary lymphadenopathy. Upper abdomen: There are calcified granulomas present in the liver and spleen. Partially visualized upper abdominal viscera is otherwise grossly unremarkable. Skeletal structures: The skeletal structures are osteopenic. There is a moderate and acute appearing compression fracture of T8. There is associated paravertebral edema. No retropulsed fragments are identified. A moderate and age indeterminant compression deformity of T10 is also noted. Degenerative change and kyphoscoliosis are noted in the thoracic spine. No lytic or blastic bony lesions are seen. Soft tissues: There are indeterminant foci of gas within the right paraspinous musculature. No inflammatory change or fluid collection is identified. IMPRESSION: 1. There is no evidence of pulmonary embolus in the main, lobar, or segmental pulmonary arteries. 2. There is no airspace consolidation, pleural effusion, or pneumothorax. 3. There is a moderate and acute appearing compression fracture of T8. Paravertebral edema is noted at this level. No retropulsed fragments are identified. 4. A moderate compression deformity of T10 is age indeterminant. 5. There are tiny foci of gas within the right paraspinous musculature, possibly related to the recent compression fracture. No inflammatory change or fluid collection is seen. 6. There is an 8 mm pathologically indeterminant pulmonary nodule at the left lung base. Consider precautionary follow-up as per the Fleischner criteria. See below. 7. An aberrant right subclavian artery is incidentally noted. 8. Additional findings as above. Please refer to below summary of Fleischner criteria recommendations for follow- up of incidental CT nodules (Yanni Ernst, Guidelines for management of small pulmonary nodules detected on CT scans: A statement from the Fleischner Society, Radiology 237: [phone].) SOLID NODULES Solitary nodule size: <6 mm * low risk patients: no follow-up needed * high risk patients: optional CT at 12 months Solitary nodule size: 6-8 mm * low risk patients: follow-up at 6-12 months, then consider further follow-up at 18-24 months * high risk patients: initial follow-up CT at 6-12 months and then at 18-24 months if no change Solitary nodule size: >8 mm * either low or high risk patients - consider follow-up CT at 3 months, and/or CT-PET, and/or biopsy Multiple nodules size: <6 mm * low risk patients: no routine follow-up * high risk patients: optional CT at 12 months Multiple nodules size: 6-8 mm * low risk patients: follow-up at 3-6 months, then consider further follow-up at 18-24 months * high risk patients: follow-up at 3-6 months, then at 18-24 months if no whatley ge Multiple nodules size: >8 mm * low risk patients: follow-up at 3-6 months, then consider further follow-up at 18-24 months * high risk patients: follow-up at 3-6 months, then at 18-24 months if no change Note: newly detected indeterminate nodule in persons 35 years of age or older. * low risk patients: minimal or absent history of smoking and/or other known risk factors * high risk patients: history of smoking or of other known risk factors (e.g. first degree relative with lung cancer, or exposure to asbestos, radon, uranium) * if a nodule up to 8 mm is partly solid or is ground glass further follow-up is required after 24 months to exclude possible slow growing adenocarcinoma ([place]) SUBSOLID NODULES Solitary pure ground-glass nodule * nodule size <6 mm - no CT follow-up required * nodule size >=6 mm - follow-up CT at 6-12 months, then every 2 years until 5 years Solitary part-solid nodule * nodule size <6 mm - no CT follow-up required * nodule size >=6 mm - follow-up CT at 3-6 months. If unchanged, and solid component remains <6 mm, then annual follow-up for 5 years Multiple subsolid nodules * nodule size <6 mm - follow-up CT at 3-6 months, consider further follow-up at 2 and 4 years if stable * nodule size >=6 mm - follow-up CT at 3-6 months, subsequent management based on the most suspicious nodule(s) Electronically signed by: Piter Bean M.D. 07/25/2019 9:38 PM ECG Data Attestation: I personally reviewed and interpreted this ECG as follows: Indication: back/shoulder pain Rate (beats per minute): 130 Rhythm: atrial fibrillation Findings: + other (QRS and QTC are within normal limits) and + ST depression (Mild, in leads 2, 3, V5 and V6) Additional Comments: 2ND EKG: Rate: 98 Rhythm: Atrial fibrillation Findings: QRS and QTC within normal limits. No ST depression or elevation. Blood Pressure Blood Pressure Findings: Normal blood pressure Blood Pressure Disposition: did not require urgent referral [facility] Narrative 1922: EMR reviewed. Patient has X-Ray done on July 20 of thoracic spine which showed compression fracture of T8 and T10. 1924: Past medical records reviewed. The patient was evaluated in room B12. A complete history and physical exam was performed. The patient was found to be in a tachycardic and irregular rate on the electronic device monitor. EKG showed A. fib with RVR. Large-bore IV access was immediately obtained and patient was pushed 10mg bolus of Cardizem, status post bolus of Cardizem heart rate has improved on monitor 95-115. 2004: I reevaluated the patient and her pain has improved. 2025: The patient's blood pressure is 115/67 and she remains in atrial fibrillation with heart rate 95-105. We are obtaining CT of chest. 2147: Vitals are stable. After Cardizem bolus, blood pressure dropped slightly and heart rate normalized. Labs and imaging are within normal limits. Heart rate is within normal limits at this time, Cardizem drip will be held. She will be treated with Heparin for atrial fibrillation. Patient will be admitted to Dr. Rosado's service. I discussed the patient's case with Dr. Rosado- [facility], Hospitalist. He will accept the patient for further management. Impression & Plan Atrial fibrillation with RVR Critical Care Time Critical Care Time: Yes Total Critical Care Time: 45 I have personally spent 45 minutes of critical care time in the direct management of this patient. This includes bedside care, interpretation of diagnostic studies, and testing, discussion with consultants, patient, and family members, and other required patient management activities. This 45 minutes is in excess of all separately billable procedures. Discharge Plan Visit Data Chief Complaint: Back Injury/Pain Stated Complaint: BACK PAIN ED Provider: Dominic Saldana Discharge Problem: Atrial fibrillation with RVR Patient Disposition: Being Evaluated by Hospitalist Forms Stand Alone Forms: My [facility] Puridify Prescriptions Prescriptions: No Action Centrum Silver Women 8 mg iron-400 mcg-300 mcg tablet 1 tab PO DAILY RF: 0 garlic 1,000 mg capsule 1,000 mg PO DAILY RF: 0 calcium carbonate-vitamin D3 500 mg(1,250mg) -200 unit tablet 1 tab PO BID RF: 0 acetaminophen 500 mg tablet 1,000 mg PO TID PRN (Reason: Pain) Qty: 90 RF: 0 cholecalciferol (vitamin D3) 1,000 unit capsule 1,000 units PO DAILY Qty: 90 RF: 0 polyethylene glycol 3350 17 gram/dose powder 17 gm PO QPM RF: 0 trazodone 50 mg tablet 25 mg PO HS PRN (Reason: Sleep) Qty: 30 RF: 0 docusate sodium 100 mg capsule 100 mg PO TID RF: 0 cranberry 450 mg Tablet 450 mg PO TID RF: 0 Hilger-3 Fish Oil 910-1,400 mg Capsule 1 cap PO DAILY RF: 0 Referrals Referrals: Elliot Vera MD [Primary Care Provider] - The scribe's documentation has been prepared under my direction and personally reviewed by me in its entirety. I confirm that the note above accurately re flects all work, treatment, procedures, and medical decision making performed by me.
[2019-07-26] MEDS ORDERED: METOPROLOL TARTRATE 1 MG/ML VIAL IV PRN (00:44)
[2019-07-26] MEDS ORDERED: MAGNESIUM HYDROXIDE SUSP 30 ML UDC PO PRN (00:44)
[2019-07-26] MEDS: DICLOFENAC SOD 1% GEL 100 GM TUBE EXT SCH ×3 (02:24→20:50)
[2019-07-26 05:26] LABS: Basophils # (auto) 0.01 K/uL (0-0.2); Basophils % (auto) 0.1 %; Hematocrit (blood only) 31.8 % (37-47); Hemoglobin 11.2 g/dL (12.0-16.0); Immature Granulocytes # (auto) 0.02 K/uL (0.00-0.02); Immature Granulocytes % (auto) 0.2 %; Lymphocytes # (auto) 1.09 K/uL (1.2-3.4); Lymphocytes % (auto) 12.9 %; Mean Corpuscular Hemoglobin 33.1 pg (25-34); Mean Corpuscular Hgb Conc 35.2 g/dL (32-36); Mean Corpuscular Volume 94.1 fL (80-100); Mean Platelet Volume 8.6 fL (7.4-10.4); Monocytes # (auto) 0.69 K/uL (0.11-0.59); Monocytes % (auto) 8.2 %; Neutrophils # (auto) 6.65 K/uL (1.4-6.5); Neutrophils % (auto) 78.6 %; Platelet Count 258 K/uL (130-400); RDW Coefficient of Variation 13.6 % (11.5-14.5); RDW Standard Deviation 46.7 fL (36.4-46.3); Red Blood Count 3.38 M/uL (4.2-5.4); White Blood Count 8.46 K/uL (4.8-10.8)
[2019-07-26 06:04] LABS: Partial Thromboplastin Ratio 2.5
[2019-07-26 06:06] LABS: BUN Creatinine Ratio 22.8 (10-20); Calcium 8.7 mg/dl (8.5-10.1); Creatinine Clr Calc Pharmacy 38.8 ml/min; Est GFR (African American) 67.5; Est GFR (Non-African American) 58.3; Magnesium 2.2 mg/dl (1.8-2.4); Potassium 4.4 mmol/L (3.5-5.1)
[2019-07-26 06:08] LABS: Partial Thromboplastin Time 68.3 Seconds (21.0-31.0)
[2019-07-26] MEDS: HEPARIN SODIUM/DEXTROSE 25,000 UNITS/500 ML BAG IV SCH (06:09)
[2019-07-26 06:13] LABS: Troponin I 0.255 ng/ml (0-0.045)
[2019-07-26] MEDS: DOCUSATE SODIUM 100 MG CAP PO SCH ×3 (08:01→20:49)
[2019-07-26] MEDS: ACETAMINOPHEN 500 MG TAB PO SCH ×3 (08:01→20:51)
[2019-07-26] MEDS ORDERED: MoRPHine SULFATE 4 MG/ML 1 ML CARP\\VIAL IV STA (10:27)
[2019-07-26 12:33] LABS: Partial Thromboplastin Ratio 2.1
[2019-07-26 12:39] LABS: Partial Thromboplastin Time 57.5 Seconds (21.0-31.0)
[2019-07-26] MEDS: MoRPHine SULFATE 2 MG/ML CARP IV PRN ×3 (13:46→23:47)
[2019-07-26] MEDS: POLYETHYLENE (MIRALAX) 17 GM PACK PO SCH ×2 (17:29→20:50)
[2019-07-26] MEDS: RIVAROXABAN 15 MG TAB PO SCH (20:50)
[2019-07-26] MEDS ORDERED: POLYETHYLENE (MIRALAX) 17 GM PACK PO SCH (21:00)
--- NOTE | 2019-07-26 22:52 | Hospitalist Progress Note ---
Date of Service July 26, 2019 Assessment & Plan (1) Atrial fibrillation with RVR: New onset Atrial fibrillation - discussed and educated patient regarding diagnosis - CHADS-VASc score is 3 - switched to NOAC (renally dose xarelto as per her insurance preference) - Echo unremarkable for wall motion abnormalities, TSH WNL, no significant alcohol history and recently discontinued all use, left atrial size normal. - Rate relatively well controlled 70-80 since Cardizem bolus given in ER and suspect much of her tachycardia is related to her pain - no drip started due to relative hypotension - metoprolol 5mg IV for rate > 100 bpm - Will start low dose metoprolol for rate control - given asymptomatic and age will opt for rate controlling strategy as unknown how long she has truly been had a. fib (2) Elevated troponin: In setting of RVR. Trending down. Consistent with demand-ischemia with echocardiogram (3) Left ventricular hypertrophy: Consult cardiology - unclear significant of severe asymmetric hypertrophy, small LV size (especially with lack of hypertension) and no clear reason for hyperdynamic EF. (4) Acute thoracic back pain: Appears to be having pain from nerve compression rather than vertebral body itself. Severe pain this morning therefore treated with IV morphine but now pain better controlled will try to control with tramadol. Unclear site of injection but local anesthetic part clearly helped initially but then once it wore off and patient was not expecting this. Consult Dr Doyle (5) Compression fracture: No known osteoporosis. Never been on bisphosphonates No vertebral pain to suggest benefit of pain relief from bisphosphonate or kyphoplasty. However given multiple compression fractures in the past no matter her bone density I would recommend starting on a bisphosphonate after DEXA scan to avoid further compression fractures. Vit D level for AM (6) Age-related cognitive decline: Monitor for delirium (7) Insomnia: Continue trazodone PRN (8) Constipation: prior Hx of fecal impaction and now on opiates will need to have aggressive bowel regimen -agree with increase Miralax to BID + colace - milk of mag prn - will use supp, in AM if still no BM (9) Pulmonary nodule: -seen incidentally on CTA today -> 8mm in lower left lobe - consider f/u CT 6-12 months (10) DVT prophylaxis: Renally dose xarelto Code - full Dispo - pending pain control with oral medication and cardiology/orthopedics review. Subjective Patient was seen initially in the morning in severe pain. Pain was on the right side of the chest reproducible on palpation. Reports no central back pain. Reported full relief of her symptoms with medication given in the ER last night. She denied any central chest pain or radiating to either arm. Revisited patient in the afternoon with her present. Currently with minimal paraspinal back pain after morphine given. She reports the pain is now mostly around the left side, nonradiating, no skin changes, aching, worse on movement, not reproducible to palpation, no worse with inspiration. Notes both pains were relieved by an injection from Dr Doyle but unknown exactly where the injection was. A. fib - in hindsight was having shortness of breath episode 3-4 days prior to admission but nothing sustained. No palpitations, orthopnea, PND, claudication. No one acute shortness of breath or chest pain episode that she feels started this. No prior coronary artery disease. Drinks 1 shot of keesha prior to bed however recently stopped this long time habit 3 weeks again. No prior history of thyroid disease. Review of Systems Review of Systems: All systems reviewed & are unremarkable except as noted in HPI & below Physical Exam Constitutional: WD/WN, vitals as above (rate 70-80 bpm) + frail appearing, cooperative and comfortable Eyes: PERRL, conjunctivae normal, anicteric sclerae ENMT: external ear and nose normal, oropharynx normal Respiratory: normal respiratory effort, lungs clear to auscultation Cardiovascular: Rate/Rhythm: + irregularly irregular (70-80 bpm) Heart Sounds: normal S1 and normal S2; no murmur Vessels: no JVD Extremities: normal capillary refill; no calf tenderness and no edema Gastrointestinal (Abdomen): normal bowel sounds, soft, nontender, no hepatosplenomegaly Musculoskeletal: no cyanosis or clubbing, extremities motor strength 5/5 Spine: normal cervical ROM, no thoracic spinal tenderness and no thoraco-lumbar mass Initially right lateral rib pain on palpation in morning but completely resolved by the afternoon. Now having mild left sided, non-reproducible pain on left later chest wall around T8 level consistent with nerve compression in this region. No overlying skin changes or rash Skin: no rashes, warm and dry Neurologic: moves all extremities and awake; no focal motor deficits Motor/Sensory: no sensory deficit Psychiatric: A+Ox3, euthymic affect Results & Data Vital Signs (Past 12 Hours) Vital Signs Temp Pulse Resp BP Pulse Ox 07/26/19 19:58 98.2 F 75 20 100/57 L 93 07/26/19 15:06 97.5 F L 88 18 113/63 95 07/26/19 11:15 98.1 F 91 H 16 107/44 L 98 PG Care Time/CCT Total # of Minutes Spent Total Time Spent with Patient: Total time spent is greater than 50% in coordination of care (as documented) at patient's floor/unit and/or counseling patient:
[2019-07-26] MEDS ORDERED: TRAMADOL HCL 50 MG TABLET PO PRN (22:53)
[2019-07-26] MEDS ORDERED: MoRPHine SULFATE 2 MG/ML CARP IV PRN (22:55)
[2019-07-27] MEDS ORDERED: METOPROLOL TARTRATE 1 MG/ML VIAL IV PRN (01:19)
[2019-07-27 05:34] LABS: Basophils # (auto) 0.01 K/uL (0-0.2); Basophils % (auto) 0.1 %; Eosinophils # (auto) 0.04 K/uL (0-0.5); Eosinophils % (auto) 0.6 %; Hematocrit (blood only) 34.2 % (37-47); Hemoglobin 11.2 g/dL (12.0-16.0); Immature Granulocytes # (auto) 0.01 K/uL (0.00-0.02); Immature Granulocytes % (auto) 0.1 %; Lymphocytes # (auto) 1.53 K/uL (1.2-3.4); Lymphocytes % (auto) 21.9 %; Mean Corpuscular Hemoglobin 31.3 pg (25-34); Mean Corpuscular Hgb Conc 32.7 g/dL (32-36); Mean Corpuscular Volume 95.5 fL (80-100); Mean Platelet Volume 8.5 fL (7.4-10.4); Monocytes # (auto) 0.71 K/uL (0.11-0.59); Monocytes % (auto) 10.2 %; Neutrophils # (auto) 4.68 K/uL (1.4-6.5); Neutrophils % (auto) 67.1 %; Platelet Count 225 K/uL (130-400); RDW Coefficient of Variation 13.9 % (11.5-14.5); RDW Standard Deviation 48.7 fL (36.4-46.3); Red Blood Count 3.58 M/uL (4.2-5.4); White Blood Count 6.98 K/uL (4.8-10.8)
[2019-07-27 05:44] LABS: Partial Thromboplastin Time 27.3 Seconds (21.0-31.0)
[2019-07-27 05:58] LABS: BUN Creatinine Ratio 19.9 (10-20); Calcium 8.7 mg/dl (8.5-10.1); Creatinine Clr Calc Pharmacy 31.6 ml/min; Est GFR (African American) 52.7; Est GFR (Non-African American) 45.5; Magnesium 2.2 mg/dl (1.8-2.4); Potassium 4.6 mmol/L (3.5-5.1)
[2019-07-27] MEDS: ACETAMINOPHEN 500 MG TAB PO SCH ×3 (08:23→19:50)
[2019-07-27] MEDS: LIDOCAINE 5% 1 PATCH TD SCH (08:24)
[2019-07-27] MEDS: DOCUSATE SODIUM 100 MG CAP PO SCH ×3 (08:24→19:49)
[2019-07-27] MEDS: DICLOFENAC SOD 1% GEL 100 GM TUBE EXT SCH ×2 (08:25→19:49)
[2019-07-27] MEDS: POLYETHYLENE (MIRALAX) 17 GM PACK PO SCH ×2 (08:25→19:49)
[2019-07-27] MEDS ORDERED: METOPROLOL TARTRATE 25 MG TAB PO SCH (09:00)
--- NOTE | 2019-07-27 12:35 | Cardiology Consultation ---
Date of Consultation July 27, 2019 Assessment & Plan (1) Atrial fibrillation with RVR: Heart rate has improved with low-dose beta-phyllis. Will increase metoprolol to 25 mg twice daily. We discussed the diagnosis in detail and treatment strategies. Agree with rate control strategy. Agree with anticoagulation for stroke risk reduction. She is currently on Xarelto and tolerating it well. Rationale for anticoagulation was discussed with her. (2) Left ventricular hypertrophy: We discussed the diagnosis. Findings not overly suggestive of hypertrophic cardiomyopathy. No LVOT obstruction noted. No further evaluation necessary at this time. (3) Elevated troponin: Troponin was only minimally elevated at 0.255 before trending downward. She did not rule in for myocardial infarction. Elevated troponin likely secondary to atrial fibrillation with rapid ventricular response, hyperdynamic LV systolic function, and LVH. This is likely due to strain. She was completely asymptomatic from a cardiac perspective. She did not present with acute coronary syndrome. No further evaluation recommended at this time. Disposition: I will be away from the hospital for the next 2 days. If there any questions or concerns, please call the on-call director of laboratory operations for [facility]. No further cardiac evaluation necessary during this hospital stay. Cardiology will sign off for now. Thank you for allowing me to participate in the care of your patient. Please call for any other questions or concerns. Sincerely, Lavon Castaneda M.D. History of Present Illness Reason for Consultation: Atrial fibrillation. Asymmetric hypertrophy. Requesting Physician: Dr. Espinal Attending Physician: Randall Espinal MD History of Present Illness Ms. Rendon is a pleasant 89-year-old female with a history significant for thoracic compression fractures and chronic back pain. She presented to [facility] on 07/25/2019 due to severe back pain. She was found to be in atrial fibrillation with rapid ventricular response and heart rate of 130 on initial ECG. She was placed on metoprolol 12.5 mg twice daily for rate control as well as anticoagulation therapy. She was completely asymptomatic from atrial fibrillation. She denies chest pain, shortness of breath, syncope, near-syncope, palpitations, edema, stroke or TIA. She denies bleeding such as melena, hematochezia, or hematuria. When I met with her earlier today, she had just finished walking in the hallway with physical therapy and tolerated it quite well. She has already been transition to Xarelto by primary service. She did have an echo done during this hospital stay which demonstrated hyperdynamic left ventricular systolic function with an EF of greater than 70%. Wall motion was normal but she did have severe asymmetric hypertrophy of the basal anteroseptum and otherwise moderate LVH. Mild to moderate MR was also noted with a sclerotic aortic valve and trace aortic regurgitation. RVSP was reported as normal. Her back pain has improved significantly throughout her hospital stay. Her presented to the bedside during our conversation. Review of systems: As above. Review of systems otherwise negative/unremarkable. Family history: Mother at the age of 90 with CHF. Social history: She denies tobacco. She had been drinking keesha in the past to help her sleep but has not had any alcohol recently. She lives at home with her . They have 3 children. Allergies Allergy/AdvReac Type Severity Reaction Status Date / Time codeine Allergy Severe GI SYMPTOMS Verified 07/25/19 20:37 Penicillins Allergy Severe ANAPHYLAXIS Verified 07/25/19 20:37 Home Medications Home Medications Medication Instructions Recorded Confirmed Type acetaminophen 500 mg tablet 1,000 mg PO TID PRN #90 tab 04/10/19 07/25/19 History calcium carbonate 500 mg (1,250 1 tab PO BID tab 04/10/19 07/25/19 History mg)-vitamin D3 200 unit tablet cholecalciferol (vitamin D3) 1,000 1,000 units PO DAILY #90 cap 04/10/19 07/25/19 History unit capsule garlic 1,000 mg capsule 1,000 mg PO DAILY 04/10/19 07/25/19 History multivit with 1 tab PO DAILY 04/10/19 07/25/19 History zpwwjccd-mwwl-GQ-lutein 8 mg iron-400 mcg-300 mcg tablet polyethylene glycol 3350 17 17 gm PO QPM gm 04/11/19 07/25/19 History gram/dose oral powder trazodone 50 mg tablet 25 mg PO HS PRN #30 tab 04/11/19 07/25/19 History docusate sodium 100 mg capsule 100 mg PO TID cap 04/16/19 07/25/19 History cranberry 450 mg PO TID 07/25/19 07/25/19 History omega 2-sax-viu-fish oil [Bow-3 1 cap PO DAILY 07/25/19 07/25/19 History Fish Oil] Patient History Medical History Left ventricular hypertrophy Atrial fibrillation with RVR (Acute) Lumbar spondylosis (Acute) Acute thoracic back pain (Acute) Osteopenia of both forearms (Chronic) Age-related cognitive decline (Acute) Aortic regurgitation (Acute) Gastroesophageal reflux disease (Acute) Hypertension (Acute) Incomplete emptying of bladder (Acute) Insomnia (Acute) Mild sleep apnea (Chronic) Osteoarthritis (Acute) Recurrent UTI (Acute) Urinary incontinence (Acute) Fracture of T10 vertebra Fracture of T8 vertebra Surgical History H/O: hysterectomy History of bunionectomy Family History Other Cancer Social History Preferred Language: Luxembourger Communication Ability: Effective Felt Finisher Required: No Beliefs That Will Affect Care: None marital status: Current Living Situation: Spouse Current Living Situation Comment: in a split level home Feels Safe at Home: Yes Smoking Status: Never smoker Hx Alcohol Use: Yes Alcohol type: beer, wine and hard liquor Hx Substance Use: No caffeine: No Seatbelt Use: always Physical Exam Physical Exam: Gen.: No acute distress. Alert and oriented. HEENT: Anicteric sclera. Neck: No JVD. No bruits. Normal carotid upstrokes bilaterally. Cardiac: PMI was nondisplaced. No ventricular heave. Irregularly irregular. Normal S1-S2. No murmurs, rubs, or gallops. Pulmonary: Clear to auscultation bilaterally without wheezes, rales, or rhonchi. Abdomen: Soft, nontender, nondistended, with normoactive bowel sounds. No bruits noted. Extremities: 2+ radial pulses bilaterally. 1+ posterior tibialis pulses bilaterally. No edema or cyanosis. Psychiatric: Affect appears appropriate. Results & Data Vital Signs (Past 12 Hours) Vital Signs Temp Pulse Pulse Pulse Resp BP BP 07/27/19 11:20 36.7 C 91 H 16 116/74 07/27/19 09:08 79 07/27/19 07:10 36.4 C L 84 16 143/87 H 07/27/19 05:35 94 H 123/75 07/27/19 04:34 36.5 C 106 H 19 175/96 H Pulse Ox 07/27/19 11:20 93 07/27/19 09:08 07/27/19 07:10 93 07/27/19 05:35 07/27/19 04:34 94 Laboratory Results Laboratory Results - last 24 hr 07/26/19 07/26/19 07/27/19 12:06 18:14 05:22 WBC RBC Hgb Hct MCV MCH MCHC RDW Std Deviation RDW Coeff of Ksenia Plt Count MPV Immature Gran % (Auto) Neut % (Auto) Lymph % (Auto) [place] % (Auto) Eos % (Auto) Baso % (Auto) Immature Gran # (Auto) Neut # (Auto) Lymph # (Auto) [place] # (Auto) Eos # (Auto) Baso # (Auto) APTT 27.3 PTT Ratio 1.0 Sodium Potassium Chloride Carbon Dioxide Anion Gap BUN Creatinine Est Cr Clr Drug Dosing Est GFR ( Amer) Est GFR (Non-Af Amer) BUN/Creatinine Ratio Glucose Calcium Magnesium Troponin I 0.210 H* 0.178 H* 25-OH Vitamin D Total 07/27/19 07/27/19 07/27/19 05:22 05:22 05:22 WBC 6.98 RBC 3.58 L Hgb 11.2 L Hct 34.2 L MCV 95.5 MCH 31.3 MCHC 32.7 RDW Std Deviation 48.7 H RDW Coeff of Ksenia 13.9 Plt Count 225 MPV 8.5 Immature Gran % (Auto) 0.1 Neut % (Auto) 67.1 Lymph % (Auto) 21.9 [place] % (Auto) 10.2 Eos % (Auto) 0.6 Baso % (Auto) 0.1 Immature Gran # (Auto) 0.01 Neut # (Auto) 4.68 Lymph # (Auto) 1.53 [place] # (Auto) 0.71 H Eos # (Auto) 0.04 Baso # (Auto) 0.01 APTT PTT Ratio Sodium 138 Potassium 4.6 Chloride 104 Carbon Dioxide 30 Anion Gap 4.0 BUN 21 H Creatinine 1.08 Est Cr Clr Drug Dosing 31.6 Est GFR ( Amer) 52.7 Est GFR (Non-Af Amer) 45.5 BUN/Creatinine Ratio 19.9 Glucose 104 H Calcium 8.7 Magnesium 2.2 Troponin I 25-OH Vitamin D Total 43.4 Diagnostic Findings Telemetry personally reviewed: Atrial fibrillation. ECGs personally reviewed: ECG 07/25/2019 at 7:33 p.m.: AFib with RVR [address] depression. LVH. Compared to prior ECG on 09/30/2016, AFib has replaced sinus rhythm. ECG 07/26/2019: AFib 82 bpm. Echocardiogram 07/26/2019 report reviewed. CTA chest 07/25/2019: No PE. No consolidation or pneumothorax. Acute compression fracture of T8. Left lung base pulmonary nodule (can be followed by PCP/hospitalist service). Medications Administered Current Inpatient Medications Acetaminophen (Tylenol) 1,000 mg PO TID [facility] Stop: 08/25/19 08:59 Last Admin: 07/27/19 08:23 Dose: 1,000 mg Documented by: Diclofenac Sodium (Voltaren 1% Top) 1 appln EXT BID [facility] Stop: 08/25/19 01:59 Last Admin: 07/27/19 08:25 Dose: 1 appln Documented by: Docusate Sodium (Colace) 100 mg PO TID [facility] Stop: 08/25/19 08:59 Last Admin: 07/27/19 08:24 Dose: 100 mg Documented by: Ioversol (Optiray 320 125ml) 119 ml IV ONCE PRN PRN Reason: Interaction Checking Stop: 07/29/19 21:12 Last Admin: 07/25/19 21:14 Dose: 119 ml Documented by: Ioversol (Optiray 320 100ml) 93 ml IV ONCE PRN PRN Reason: Interaction Checking Stop: 07/29/19 21:36 Last Admin: 07/25/19 21:38 Dose: 93 ml Documented by: Lidocaine (Lidoderm 5%) 1 patch TD QAM [facility] Stop: 08/26/19 08:59 Last Admin: 07/27/19 08:24 Dose: 1 patch Documented by: Magnesium Hydroxide (Milk Of Magnesia) 30 ml PO Q12H PRN PRN Reason: Constipation Stop: 08/25/19 00:43 Metoprolol Tartrate (Lopressor) 12.5 mg PO BID [facility] Stop: 08/26/19 08:59 Last Admin: 07/27/19 09:26 Dose: 12.5 mg Documented by: Metoprolol Tartrate (Lopressor) 5 mg IV Q5M PRN PRN Reason: HR > 100 Stop: 08/25/19 00:43 Miscellaneous (Remove Lidoderm Patch) 1 ea N/A DAILY@2100 [facility] Stop: 08/26/19 20:59 Morphine Sulfate (Morphine Sulfate) 2 mg IV Q2H PRN PRN Reason: Pain (5-10) Stop: 08/09/19 10:25 Last Admin: 07/26/19 23:47 Dose: 2 mg Documented by: Polyethylene Glycol (Miralax Powder Packet) 17 gm PO BID [facility] Stop: 08/25/19 08:59 Last Admin: 07/27/19 08:25 Dose: 17 gm Documented by: Rivaroxaban (Xarelto) 15 mg PO QDD [facility] Stop: 08/25/19 19:59 Last Admin: 07/26/19 20:50 Dose: 15 mg Documented by: Tramadol HCl (Ultram) 50 mg PO Q4H PRN PRN Reason: Pain (severity 1-5) Stop: 08/25/19 22:59 PG Care Time/CCT Total # of Minutes Spent Total Time Spent with Patient: Total time spent is greater than 50% in coordination of care (as documented) at patient's floor/unit and/or counseling patient:
[2019-07-27] MEDS ORDERED: TRAMADOL HCL 50 MG TABLET PO PRN (15:52)
[2019-07-27] MEDS ORDERED: POLYETHYLENE (MIRALAX) 17 GM PACK PO ONE (16:00)
[2019-07-27] MEDS ORDERED: GLYCERIN ADULT 12 SUPP/BOX SUPP PR ONE (16:00)
[2019-07-27] MEDS: RIVAROXABAN 15 MG TAB PO SCH (16:49)
[2019-07-27] MEDS: TRAMADOL HCL 50 MG TABLET PO PRN (19:49)
[2019-07-27] MEDS: METOPROLOL TARTRATE 25 MG TAB PO SCH (19:50)
--- NOTE | 2019-07-27 20:45 | Hospitalist Progress Note ---
Date of Service July 27, 2019 Assessment & Plan (1) Atrial fibrillation with RVR: New onset Atrial fibrillation - CHADS-VASc score is 3 - switched to NOAC (renally dose xarelto as per her insurance preference) - Echo unremarkable for wall motion abnormalities, TSH WNL, no significant alcoh ol history and recently discontinued all use, left atrial size normal. - Increased metoprolol tatrate PO to 25mg PO BID by cardiology (2) Elevated troponin: In setting of RVR. Trending down. Consistent with demand-ischemia with echocardiogram and lack of symptoms (3) Left ventricular hypertrophy: Appreciate cardiology review. Findings not overly suggestive of hypertrophic cardiomyopathy with no LVOT obstruction, no further evaluation a this time. (4) Acute thoracic back pain: Discontinue IV morphine as cannot be discharged from this. Advised to move more instead of staying in bed as this will make the pain worse. (5) Compression fracture: No known osteoporosis. Never been on bisphosphonates No vertebral pain to suggest benefit of pain relief from bisphosphonate or kyphoplasty. However given multiple compression fractures in the past no matter her bone density I would recommend starting on a bisphosphonate after DEXA scan to avoid further compression fractures. Vit D level WNL, continue supplementation (6) Age-related cognitive decline: Monitor for delirium (7) Insomnia: Continue trazodone PRN (8) Constipation: given opiate use and prior history of fecal impaction will be aggressive with bowel regimen. No abdominal pain, vomiting and passing flatus. Additional x2 miralax now with x2 glycerin supp. - continue increased Miralax to BID + colace - milk of mag prn (9) Pulmonary nodule: -seen incidentally on CTA today -> 8mm in lower left lobe - consider f/u CT 6-12 months (10) DVT prophylaxis: Renally dose xarelto Code - full Dispo - patient and concerned about going home and now requesting [facility] as once of the options presented to her by PT. Will await authorization and bed. Once she has had a bowel movement she will be medically stable for discharge. Subjective Pain well controlled overnight when she gets IV morphine. Worse today with tramadol alone - currently complaining mostly of right sided rib pain which is nor reproducible to palpation. No chest pain, palpitations, shortness of breath, orthopnea or PND. Review of Systems Review of Systems: All systems reviewed & are unremarkable except as noted in HPI & below Physical Exam Constitutional: WD/WN, vitals as above (rate 70-80 bpm) + frail appearing ENMT: external ear and nose normal, oropharynx normal Neck: trachea midline Respiratory: normal respiratory effort, lungs clear to auscultation Cardiovascular: Rate/Rhythm: + irregularly irregular (70-80 bpm) Heart Sounds: normal S1 and normal S2; no murmur Vessels: no JVD Extremities: normal capillary refill; no calf tenderness and no edema Gastrointestinal (Abdomen): normal bowel sounds, soft, nontender, no hepatosplenomegaly Musculoskeletal: no cyanosis or clubbing, extremities motor strength 5/5 Spine: + thoracic spinal tenderness (paraspinal tenderness around T8); normal cervical ROM and no thoraco-lumbar mass Skin: no rashes, warm and dry Neurologic: moves all extremities and awake; no focal motor deficits Motor/Sensory: no sensory deficit Psychiatric: A+Ox3, euthymic affect Results & Data Vital Signs (Past 12 Hours) Vital Signs Temp Pulse Pulse Pulse Resp BP BP 07/27/19 16:30 74 07/27/19 15:35 97.9 F 85 18 140/73 07/27/19 14:54 98.6 F 91 H 24 99/65 L 07/27/19 11:20 98.1 F 91 H 16 116/74 07/27/19 09:08 79 Pulse Ox 07/27/19 16:30 07/27/19 15:35 96 07/27/19 14:54 95 07/27/19 11:20 93 07/27/19 09:08 PG Care Time/CCT Total # of Minutes Spent Total Time Spent with Patient: Total time spent is greater than 50% in coordination of care (as documented) at patient's floor/unit and/or counseling patient:
[2019-07-28 06:36] LABS: BUN Creatinine Ratio 25.1 (10-20); Calcium 8.4 mg/dl (8.5-10.1); Creatinine Clr Calc Pharmacy 30.6 ml/min; Est GFR (African American) 55.8; Est GFR (Non-African American) 48.2; Potassium 4.3 mmol/L (3.5-5.1)
[2019-07-28] MEDS: DOCUSATE SODIUM 100 MG CAP PO SCH ×3 (08:19→21:25)
[2019-07-28] MEDS: ACETAMINOPHEN 500 MG TAB PO SCH ×3 (08:20→21:16)
[2019-07-28] MEDS: METOPROLOL TARTRATE 25 MG TAB PO SCH ×2 (08:20→21:13)
[2019-07-28] MEDS: POLYETHYLENE (MIRALAX) 17 GM PACK PO SCH ×2 (08:21→21:25)
[2019-07-28] MEDS: DICLOFENAC SOD 1% GEL 100 GM TUBE EXT SCH ×2 (08:22→21:13)
[2019-07-28] MEDS: LIDOCAINE 5% 1 PATCH TD SCH (08:24)
--- NOTE | 2019-07-28 09:20 | Consultation Report ---
DATE OF CONSULTATION: 07/27/2019 CHIEF COMPLAINT: Back pain. HISTORY OF PRESENT ILLNESS: Shasha is a pleasant lady, I have known her for several years, I actually saw her in the office a few days ago with a compression fracture, rib pain. Evidently, the pain got out of control for her over the last few days. She and her came to the Emergency Room for evaluation and treatment and she was admitted for pain. I saw her in the morning of 07/27. She was improved and stable, and I do not think she was in that much pain there at the bedside. She had no shortness of breath, chest pain or extremity difficulty. PAST MEDICAL HISTORY: Positive for cardiac disease, severe scoliosis, severe osteoporosis, atrial fibrillation, multiple compression fractures, hypertension, insomnia. MEDICATIONS: Reviewed. ALLERGIES: PENICILLIN, CODEINE. PAST SURGICAL HISTORY: Includes hysterectomy and bunionectomy. FAMILY HISTORY: Carcinoma. REVIEW OF SYSTEMS: She denies any fevers, sweats, shortness of breath, chest pain, or palpitations. No lightheadedness. Occasional constipation but no abdominal discomfort. PHYSICAL EXAMINATION: GENERAL: She is alert, oriented. She is frail in appearance. She is comfortable in bed and answers questions appropriately. HEENT: Normal. HEART AND RESPIRATORY: Normal as well. Regular rate and rhythm I found today versus AFib. VITAL SIGNS: Rest of the vital signs stable. NEUROLOGIC: She is intact as well. SKIN: Intact. VASCULAR STRUCTURES: Intact. X-RAYS: Demonstrate multiple compression fractures, scoliosis of the thoracolumbar spine. IMPRESSION: Multiple compression fractures and scoliosis of the thoracolumbar spine, certainly her pain generator. PLAN: This will be a nonsurgical problem. It is a pain management problem at this point in time, overall global issue. I do not have any great answers for her, occasionally some injections can help her as an outpatient, anti-inflammatories of course, some pain patches can be applied as well. All this can be done in the office and was done in the office. I will follow up with her in the office setting. No surgical considerations currently. ABIGAIL
[2019-07-28] MEDS: TRAMADOL HCL 50 MG TABLET PO PRN (09:57)
[2019-07-28] MEDS ORDERED: TRAMADOL HCL 50 MG TABLET PO PRN (12:58)
[2019-07-28] MEDS: RIVAROXABAN 15 MG TAB PO SCH (17:03)
--- NOTE | 2019-07-28 17:25 | Hospitalist Progress Note ---
Date of Service July 28, 2019 Assessment & Plan (1) Atrial fibrillation with RVR: New onset Atrial fibrillation - CHADS-VASc score is 3 - continue xarelto 15mg - Echo unremarkable for wall motion abnormalities, TSH WNL, no significant alcohol history and recently discontinued all use, left atrial size normal. - Increase metoprolol tatrate PO to 50mg PO BID as telemetry trend average 80 bpm (2) Elevated troponin: Demand-ischemia in setting of RVR (3) Left ventricular hypertrophy: Appreciate cardiology review. Findings not overly suggestive of hypertrophic cardiomyopathy with no LVOT obstruction, no further evaluation a this time. (4) Acute thoracic back pain: Stop 100mg dose of tramadol as just causing confusion and worsening balance. Suspect her sudden onset intermittent pains are muscle spasms and risks of muscle relaxant would outweigh any benefit. Concern for balance, constipation and confusion with stronger opiates NSAIDs limited due to CKD stage 3 and need for xarelto for a. fib Scheduled acetaminophen Calcitonin of limited benefit since her pain is mostly muscle spams rather than from the compression fracture itself Need for ongoing physical therapy likely of greatest benefit Appreciate Dr Doyle review - no surgical management advised Will consult pain management for further advice Will discuss with DO hospitalist regarding any osteopathic manipulations suggested given fracture is non acute at this stage (5) Compression fracture: No known osteoporosis. Never been on bisphosphonates Recommend DEXA scan as oupatient to monitor therapy but start No vertebral pain to suggest benefit of pain relief from bisphosphonate or kyphoplasty. However given multiple compression fractures in the past no matter her bone density I would recommend starting on a bisphosphonate after DEXA scan to avoid further compression fractures. Vit D level WNL, continue supplementation (6) Age-related cognitive decline: Monitor for delirium (7) Insomnia: Continue trazodone PRN (8) Constipation: - continue outpatient regimen now she has had a large BM (9) Pulmonary nodule: -seen incidentally on CTA today -> 8mm in lower left lobe - consider f/u CT 6-12 months (10) DVT prophylaxis: Renally dose xarelto Code - full Dispo - patient and concerned about going home and now requesting [facility] as once of the options presented to her by PT. Will await authorization and bed. Once she has had a bowel movement she will be medically stable for discharge. Subjective No acute events overnight. Had large BM yesterday evening. Patient having balance issues when walking and concern from family and nurses that she has worse confusion today. Continues to have sudden pains which are very severe. Currently non-reproducible pain on right chest wall is bothering her the most but she appears comfortable. Unable to go to [facility]) given good mobility with physical therapy. Her and daughter at beside are concerned about her going home especially with stairs which have not been addressed with OT or PT. Review of Systems Review of Systems: All systems reviewed & are unremarkable except as noted in HPI & below Physical Exam Constitutional: WD/WN, vitals as above (rate 70-90 bpm) + frail appearing ENMT: external ear and nose normal, oropharynx normal Neck: trachea midline Respiratory: normal respiratory effort, lungs clear to auscultation Cardiovascular: Rate/Rhythm: + irregularly irregular Heart Sounds: no murmur Vessels: no JVD Extremities: normal capillary refill; no calf tenderness and no edema Gastrointestinal (Abdomen): Inspection/Auscultation: + hyperactive bowel sounds; abdomen not distended Percussion/Palpation: abdomen soft; abdomen nontender, no guarding and abdomen not rigid Musculoskeletal: no cyanosis or clubbing, extremities motor strength 5/5 Spine: + thoracic spinal tenderness (paraspinal tenderness around T8); normal cervical ROM and no thoraco-lumbar mass Skin: no rashes, warm and dry Neurologic: moves all extremities and awake; no focal motor deficits Motor/Sensory: no sensory deficit Psychiatric: A+Ox3, euthymic affect Results & Data Vital Signs (Past 12 Hours) Vital Signs Temp Pulse Pulse Resp BP BP Pulse Ox 07/28/19 16:00 83 07/28/19 15:54 97.3 F L 78 18 107/69 93 07/28/19 11:53 98.1 F 96 H 19 108/74 94 07/28/19 08:06 97.9 F 83 19 113/63 97 PG Care Time/CCT Total # of Minutes Spent Total Time Spent with Patient: Total time spent is greater than 50% in coordination of care (as documented) at patient's floor/unit and/or counseling patient:
[2019-07-29] MEDS: METOPROLOL TARTRATE 25 MG TAB PO SCH ×2 (07:51→20:49)
[2019-07-29] MEDS: POLYETHYLENE (MIRALAX) 17 GM PACK PO SCH (07:52)
[2019-07-29] MEDS: LIDOCAINE 5% 1 PATCH TD SCH (07:52)
[2019-07-29] MEDS: DICLOFENAC SOD 1% GEL 100 GM TUBE EXT SCH ×2 (07:54→20:52)
[2019-07-29] MEDS: DOCUSATE SODIUM 100 MG CAP PO SCH ×2 (08:32→20:49)
[2019-07-29] MEDS: ACETAMINOPHEN 500 MG TAB PO SCH ×3 (08:33→20:51)
[2019-07-29] MEDS: RIVAROXABAN 15 MG TAB PO SCH (16:26)
--- NOTE | 2019-07-29 21:31 | Hospitalist Progress Note ---
Date of Service July 29, 2019 Assessment & Plan (1) Paroxysmal atrial fibrillation with RVR: New onset Atrial fibrillation this admission. Converted to NSR 07/28. Suspect exacerbated by pain. - Echo unremarkable for wall motion abnormalities, TSH WNL, no significant alcohol history and recently discontinued all use, left atrial size normal. - CHADS-VASc score is 3 - continue xarelto 15mg (renally dosed) - will reduce metoprolol tartrate back to 25 PO BID as now in NSR and realtively was rate controlling her when in a. fib - follow up with PCP (2) Elevated troponin: Demand-ischemia in setting of RVR (3) Left ventricular hypertrophy: Appreciate cardiology review. Findings not overly suggestive of hypertrophic cardiomyopathy with no LVOT obstruction, no further evaluation at this time. (4) Acute thoracic back pain: Much improved now she is moving more. Better with lower dose of tramadol as less confused and off balance. NSAIDs limited due to CKD stage 3 and need for xarelto for a. fib Scheduled acetaminophen Cancel pain management referral given improvement Appreciate Dr Doyle review - no surgical management advised (5) Compression fracture: No known osteoporosis. Never been on bisphosphonates Recommend DEXA scan as outpatient to monitor therapy but start treatment regardless given multiple compression fractures previously and associated pain. Vit D level WNL, continue supplementation (6) Age-related cognitive decline: Monitor for delirium. Better on lower dose of tramadol (do not anticipate inspector advanced composite use). (7) Insomnia: Continue home med - trazodone PRN (8) Constipation: - continue outpatient regimen, large BM on 07/27 (9) Pulmonary nodule: -seen incidentally on CTA today -> 8mm in lower left lobe - consider f/u CT 6-12 months (10) DVT prophylaxis: Renally dose xarelto (as per her insurance plan) Code - full Dispo - patient and concerned about going home, plan for [facility] referral on Tuesday. Medically stable for discharge. Subjective Patient actually converted to sinus rhythm around 16:00 yesterday however I was not informed therefore did not change metoprolol dose. However in sinus rhythm with 50mg metoprolol she has been average 60bpm and never <40. She was unaware of any change. No chest pain, shortness of breath, palpitations, orthopnea or PND. Managed to walk around the [place] today. Much less confused and better balance on lower dose of tramadol. Planning on discharge to [facility] [place] with physical therapy as still she and her are concerned about going home. Review of Systems Review of Systems: All systems reviewed & are unremarkable except as noted in HPI & below Physical Exam Constitutional: WD/WN, vitals as above (rate 55-65 bpm) + frail appearing Eyes: PERRL, conjunctivae normal, anicteric sclerae ENMT: external ear and nose normal, oropharynx normal Neck: trachea midline Respiratory: normal respiratory effort, lungs clear to auscultation Cardiovascular: Rate/Rhythm: regular rhythm Heart Sounds: no murmur Extremities: normal capillary refill; no calf tenderness and no edema Gastrointestinal (Abdomen): normal bowel sounds, soft, nontender, no hepatosplenomegaly Musculoskeletal: no cyanosis or clubbing, extremities motor strength 5/5 Spine: normal cervical ROM and no thoracic spinal tenderness (no chest wall tenderness) Skin: no rashes, warm and dry Neurologic: moves all extremities and awake; no focal motor deficits Motor/Sensory: no sensory deficit Psychiatric: A+Ox3, euthymic affect Results & Data Vital Signs (Past 12 Hours) Vital Signs Temp Pulse Pulse Resp BP Pulse Ox 07/29/19 20:14 99.3 F 68 16 141/75 H 94 07/29/19 16:00 61 07/29/19 15:29 98.1 F 59 L 16 124/70 94 07/29/19 13:55 59 L PG Care Time/CCT Total # of Minutes Spent Total Time Spent with Patient: Total time spent is greater than 50% in coor dination of care (as documented) at patient's floor/unit and/or counseling patient: (1) Acute thoracic back pain Back pain laterality: bilateral Qualified Code(s): M54.6 - Pain in thoracic spine (2) Constipation Constipation type: chronic idiopathic constipation Qualified Code(s): K59.04 - Chronic idiopathic constipation
[2019-07-30] MEDS: POLYETHYLENE (MIRALAX) 17 GM PACK PO SCH (07:58)
[2019-07-30] MEDS: DOCUSATE SODIUM 100 MG CAP PO SCH ×2 (07:58→20:38)
[2019-07-30] MEDS: METOPROLOL TARTRATE 25 MG TAB PO SCH ×2 (07:59→20:37)
[2019-07-30] MEDS: LIDOCAINE 5% 1 PATCH TD SCH (08:00)
[2019-07-30] MEDS: DICLOFENAC SOD 1% GEL 100 GM TUBE EXT SCH ×4 (08:01→20:37)
[2019-07-30] MEDS: ACETAMINOPHEN 500 MG TAB PO SCH ×3 (09:00→21:27)
[2019-07-30] MEDS: RIVAROXABAN 15 MG TAB PO SCH (16:21)
--- NOTE | 2019-07-30 20:16 | Hospitalist Progress Note ---
Date of Service July 30, 2019 Assessment & Plan (1) Compression fracture: T8 and T10 - former is acute, T10 likely chronic. I asked Richard Severino from orthotics to consult for consideration of TLSO brace. Cont tramadol q6h prn. Tylenol 1gm TID scheduled. Lidoderm patches prn. Voltaren gel 4gm qid to back. Needs rehab. Recent vitamin D level noted to be normal. (2) Paroxysmal atrial fibrillation with RVR: PAF at time of admission. Converted to NSR 07/28. ECHO wnl. TSH wnl. K/mag normal. CHADS-VASc score is 3 - continue xarelto 15mg daily. Cont metoprolol tartrate 25 PO BID. Cont tele until time of discharge. (3) Elevated troponin: Demand-ischemia in setting of a.fib. NO ACS. (4) Acute thoracic back pain: 2nd to compression fractures. Appreciate Dr Doyle's consultation. Nonoperative management. No neuro deficits on exam. (5) Age-related cognitive decline: Noted. (6) Insomnia: trazodone PRN (7) Constipation: cont bowel regimen (8) Pulmonary nodule: Seen incidentally on CTA chest. 8mm in lower left lobe - usual f/u would be with CT 6-12 months but given her age consider deferring. (9) DVT prophylaxis: xarelto updated [facility] auth pending Subjective patient has remained in NSR since converting from a.fib this weekend. main complaint is that of back pain - thoracic region in midline and also paraspinal on right. didn't sleep well last pm because of pain. no weakness or numbness in legs. moving bowels but does suffer from chronic constipation. is aware of outstanding referral to [facility]. at bedside - update given. Review of Systems Constitutional: no fever Respiratory: no cough and no dyspnea Cardiovascular: no chest pain Gastrointestinal: no abdominal pain, no nausea and no vomiting Physical Exam Constitutional: well developed and well nourished; no acute distress and no altered mental status ENMT: external ear and nose normal, oropharynx normal Respiratory: normal respiratory effort, lungs clear to auscultation Cardiovascular: Rate/Rhythm: regular rate and regular rhythm Heart Sounds: normal S1, normal S2 and + murmur (1/6 LSB) Vessels: posterior tibial pulses present and dorsalis pedis pulses present; no JVD Extremities: no edema Gastrointestinal (Abdomen): normal bowel sounds, soft, nontender, no hepatosplenomegaly Musculoskeletal: Spine: + thoracic spinal tenderness (along w/ paraspinal tenderness on right ) Neurologic: no focal motor deficits (leg strength 5/5 x both legs) Psychiatric: A+Ox3, euthymic affect Results & Data Vital Signs (Past 12 Hours) Vital Signs Temp Pulse Pulse Resp BP BP Pulse Ox 07/30/19 19:36 36.7 C 72 18 174/86 H 96 07/30/19 16:01 37.1 C 65 16 111/72 97 07/30/19 15:26 70 PG Care Time/CCT Total # of Minutes Spent Total Time Spent with Patient: Total time spent is greater than 50% in coordination of care (as documented) at patient's floor/unit and/or counseling patient: (1) Acute thoracic back pain Back pain laterality: bilateral Qualified Code(s): M54.6 - Pain in thoracic spine (2) Insomnia Insomnia type: unspecified Qualified Code(s): G47.00 - Insomnia, unspecified (3) Constipation Constipation type: chronic idiopathic constipation Qualified Code(s): K59.04 - Chronic idiopathic constipation
[2019-07-31] MEDS: METOPROLOL TARTRATE 25 MG TAB PO SCH (07:13)
[2019-07-31] MEDS: ACETAMINOPHEN 500 MG TAB PO SCH ×2 (07:17→15:33)
[2019-07-31] MEDS: DOCUSATE SODIUM 100 MG CAP PO SCH (08:26)
[2019-07-31] MEDS: POLYETHYLENE (MIRALAX) 17 GM PACK PO SCH (08:27)
[2019-07-31] MEDS: LIDOCAINE 5% 1 PATCH TD SCH (08:27)
[2019-07-31] MEDS: DICLOFENAC SOD 1% GEL 100 GM TUBE EXT SCH ×3 (08:29→17:52)
[2019-07-31] MEDS ORDERED: AMLODIPINE BESYLATE 5 MG TAB PO SCH (09:00)
--- NOTE | 2019-07-31 17:37 | Discharge Summary ---
Date of Service date of admission - July 25, 2019 date of discharge - July 31, 2019 Admission HPI Per Admitting Provider Ms. Rendon is a very pleasant 89 year old female with a past medical history of T8 and T10 compression fractures, osteoarthritis, aortic regurgitation, breast cancer s/p lumpectomy (2006) who presents to the emergency department due to intractable back pain, and was incidentally found to be in atrial fibrillation. She reports that she saw today for her compression fractures, who administered an injection into her back for this, and prescribed lidocaine patches. She reports that the pain from her compression fractures began approximately 3 weeks ago, the morning after she washed the windows of her house. She states that in addition to the lidocaine patches, she has been using Aleve daily for the past 1 week, as well as extra strength Tylenol, however is struggling with the level of pain she is in. She reports decreased appetite due to the pain. She denies a prior history of atrial fibrillation. She denies chest pain, palpitations, and states that she has no prior history of an ND. She does report that her neighbor thought she was more short of breath recently. She denies fever, chills, or cough. She does endorse constipation, and states that she is still having difficulty with this despite taking miralax and colace daily. Principal Diagnosis thoracic spine compression fractures Discharge Exam Constitutional well developed and well nourished; no acute distress and no altered mental status ENMT external ear and nose normal, oropharynx normal Respiratory normal respiratory effort, lungs clear to auscultation Cardiovascular Rate/Rhythm: regular rate and regular rhythm Heart Sounds: normal S1, normal S2 and + murmur (1/6 LSB) Vessels: posterior tibial pulses present and dorsalis pedis pulses present; no JVD Extremities: no edema Gastrointestinal (Abdomen) normal bowel sounds, soft, nontender, no hepatosplenomegaly Musculoskeletal Spine: + thoracic spinal tenderness (along w/ paraspinal tenderness on right ) Neurologic no focal motor deficits (leg strength 5/5 x both legs) Psychiatric A+Ox3, euthymic affect Discharge Data Allergies Allergy/AdvReac Type Severity Reaction Status Date / Time codeine Allergy Severe GI SYMPTOMS Verified 08/02/19 11:13 Penicillins Allergy Severe ANAPHYLAXIS Verified 08/02/19 11:13 Consultations Orthopedic Surgery - Dr Main Doyle [facility] - Dr Lavon Castaneda PT, OT Orthotics Ordered Studies CTA chest: IMPRESSION: 1. There is no evidence of pulmonary embolus in the main, lobar, or segmental pulmonary arteries. 2. There is no airspace consolidation, pleural effusion, or pneumothorax. 3. There is a moderate and acute appearing compression fracture of T8. Paravertebral edema is noted at this level. No retropulsed fragments are identified. 4. A moderate compression deformity of T10 is age indeterminant. 5. There are tiny foci of gas within the right paraspinous musculature, possibly related to the recent compression fracture. No inflammatory change or fluid collection is seen. 6. There is an 8 mm pathologically indeterminant pulmonary nodule at the left lung base. Consider precautionary follow-up as per the Fleischner criteria. See below. 7. An aberrant right subclavian artery is incidentally noted. Hospital Course (1) Compression fracture: T8 and T10 - former is acute, T10 likely chronic. Seen by Dr Main Doyle, spine/orthopedics, who recommended ongoing conservative measures rather than operative management. Seen by Richard Severino from orthotics who fitted the patient with a TLSO brace. She can continue tramadol q6h prn pain but actually she did not utilize it while hospitalized. Continue tylenol 1gm TID scheduled. Continue Lidoderm patches prn. Voltaren gel 4gm qid to back as well. Recent vitamin D level noted to be normal. Seen by PT/OT and rehab was advised. Despite therapy recommendations her insurance company DENIED HER A STAY AT SNF FOR REHAB, CLAIMING THAT SHE WAS DOING WELL ENOUGH TO RETURN HOME AND THAT SHE DID NOT REQUIRE SKILLED SERVICES. Several options were discussed with the patient and her after we learned of her denial for rehab. Appealing the insurance denial was discussed. After much discussion the pt's stated he felt comfortable taking the patient home with home health/PT/OT services. (2) Paroxysmal atrial fibrillation with RVR: PAF at time of admission. Converted to NSR 07/28/2019. ECHO wnl. TSH wnl. K/mag normal. Seen by cardiology -- anticoagulation was advised. CHADS-VASc score is 3 - initiated on xarelto 15mg daily. Cont metoprolol tartrate 25 PO BID. After conversion to NSR on 07/28 she remained in such for the remainder of her stay. (3) Elevated troponin: Likely demand-ischemia in setting of a.fib. NO ACS. Peak troponin was 0.255. (4) Acute thoracic back pain: 2nd to compression fractures. Nonoperative Rx recommended by Dr Doyle. No neuro deficits on exam despite the fractures. (5) Age-related cognitive decline: (6) Insomnia: trazodone PRN (7) Constipation: cont bowel regimen after discharge (8) Pulmonary nodule: Seen incidentally on CTA chest. 8mm in lower left lobe - usual f/u would be with CT 6-12 months but given her age consider deferring. Will defer final decision to the patient and her outpatient providers. (9) Chronic kidney disease, stage 3a: baselin CrCl low 30s Total Time Total Time Spent Total Time Spent (In Minutes): 40 Total Time Includes: Examination of the Patient, Discharge Planning, Medication Reconciliation and Communication With Other Providers Discharge Plan Discharge Items Patient Disposition: Home - Home Health Services Reason For Visit: AFIB, COMPRESSION FRACTURE Discharge Diagnosis: 1. New onset atrial fibrillation - resolved - your heart has returned to normal rhythm. 2. T8 compression fracture Goals: 1. improve pain 2. treat a.fib Activity: As commented below Activity Comment: avoid any activity that worsens your back pain; light activities only Lifting: Gradually increase as tolerated Bathing: No limitations Non-emergency contact: Primary Care Provider Call non-emergency contact if: you have any medication questions, your symptoms worsen, your pain is not controlled, your pain is worsening, your pain is unusual for you, your pain is concerning for you and you have a fever Follow-up/Referrals: Elliot Vera MD [Primary Care Provider] - 08/02/19 11:00 am (Please, follow up at Dr. Elliot Vera's office with his associate, Antonieta Rosenbaum PA-C, on August 02 at 11:00 am. *If you need to change this appointment, call their office at [phone].) Diet: Regular Addtl Attending Provider Instructions: You were treated for new-onset a.fib as well as a compression fracture in the thoracic spine of your back. The a.fib resolved -- that is, your heart rhythm went back to a normal rhythm while hospitalized. You have remained in normal rhythm over the last 2 days of your stay. You were seen by the cap sizer while hospitalized and they have recommended blood thinner medication to reduce your risk of stroke from the a.fib. Your back pain gradually improved with time, pain medications, back brace, gels, topical patches, etc. Recommendations -- 1. take metoprolol 25mg twice daily for your heart / a.fib. 2. take xarelto (rivaroxaban) 15mg once daily. This is your blood thinner medication. This medication will reduce your chances of stroke from the a.fib. 3. please use your back brace when you are ambulating/walking, doing lots of activity, leaving your home, etc. Remove while sleeping, sitting for long periods of time, or performing your grooming/shower/etc. 4. may use voltaren gel, 4 grams up to 4 times a day to your back. Tube of gel given to you at time of discharge. 5. may continue to use lidoderm patches - up to 3 at a time - to the areas of pain on your back. Leave for 12hours, remove for 12hours. 6. consider taking tylenol 1000mg three times a day every day in a scheduled pattern to prevent/treat pain. 7. consider heating pad for your back. Blood thinner instructions -- Your blood thinner is XARELTO. Your condition (A.FIB) is typically treated with an anticoagulant. Anticoagulants will thin your blood to help prevent new clots in your heart. * You should take your medication exactly as directed. * Never skip a dose. * Never take a double dose. If you miss a dose, take it as soon as you remember. Call your Primary Care doctor if you experience any of the following: * Swelling or Pain in your leg * Sudden, continuous pain deep in a muscle * Pain that worsens when you are active or when you stand still for a long time * Chest Pain * Sudden Shortness of Breath * Rapid or pounding heart beat * Fainting * Dizziness * Cough with blood or bloody sputum * Sweating more than normal * Bruises * Heavy or uncontrolled bleeding * Blood in your urine, stool or vomit * Black or tarry stools * Severe nosebleeding Lastly, we incidentally saw a Pulmonary nodule on your CAT scan of your lungs. It was 8mm in size in the lower left lobe of the lung. The vast majority of these are BENIGN (Not harmful). You could consider a repeat CAT scan in 6-12 months but please discuss this more with Dr Vera. Follow-up - see separate section Return to [facility] if - * you have worsening back pain that is not controlled with your medications * you have rapid heart beating/palpitations/heart fluttering * you have shortness of breath or chest pain * you develop weakness or numbness of either leg * you have difficulty walking * you have uncontrolled bleeding from any location * any other concerns Pending Studies at Discharge: No Stand-Alone Forms: My [facility] Medications and DC Order Prescriptions: New Xarelto 15 mg Tablet 15 mg PO QDD Qty: 30 RF: 2 metoprolol tartrate 25 mg Tablet 25 mg PO BID Qty: 60 RF: 2 diclofenac sodium [Voltaren] 1 % Gel 4 gm EXT QID PRN (Reason: pain) Qty: 100 RF: 0 lidocaine 5 % Adhesive Patch,Medicated 3 patch transdermal QAM Qty: 60 RF: 0 Continued Centrum Silver Women 8 mg iron-400 mcg-300 mcg tablet 1 tab PO DAILY RF: 0 garlic 1,000 mg capsule 1,000 mg PO DAILY RF: 0 calcium carbonate-vitamin D3 500 mg(1,250mg) -200 unit tablet 1 tab PO BID RF: 0 acetaminophen 500 mg tablet 1,000 mg PO TID PRN (Reason: Pain) Qty: 90 RF: 0 cholecalciferol (vitamin D3) 1,000 unit capsule 1,000 units PO DAILY Qty: 90 RF: 0 polyethylene glycol 3350 17 gram/dose powder 17 gm PO QPM RF: 0 docusate sodium 100 mg capsule 100 mg PO TID RF: 0 cranberry 450 mg Tablet 450 mg PO TID RF: 0 [place]-3 Fish Oil 910-1,400 mg Capsule 1 cap PO DAILY RF: 0 No Action tramadol 50 mg tablet 25 mg PO BID PRN (Reason: pain) Qty: 7 RF: 0 Discharge Orders: Discharge Order (Routine); Ordered 07/31/19 Ordered By: Randall Bliss Admission Data Admit Date/Time: 07/26/19 08:17 Attending Provider: Randall Bliss Admit Provider: Callum Dunne Primary Care Provider: Elliot Vera Other Providers: Main Doyle Alexander W. Other Interventions: Discharge Summary Assessment (RN) Last Done: 07/31/19 18:13 DC Date/Time DO NOT enter until pt leaves facility: 07/31/19 19:10
[2019-07-31] MEDS: RIVAROXABAN 15 MG TAB PO SCH (17:52)
== END 2019-07-31 19:10 | disposition home health service (06) | DRG 309 ==
LOC: 2S 19:15 → ED 19:15 → SUATTDRO 23:03 → 2S 07-26 00:15 → SUATTDRO 07-26 08:17 → 2N 07-27 17:34
DX: S22.070A Wedge compression fracture of T9-T10 vertebra, initial encounter for closed fracture; I24.8 Other forms of acute ischemic heart disease; I48.0 Paroxysmal atrial fibrillation; G47.00 Insomnia, unspecified; K59.00 Constipation, unspecified; K21.9 Gastro-esophageal reflux disease without esophagitis; I10 Essential (primary) hypertension; S22.060A Wedge compression fracture of T7-T8 vertebra, initial encounter for closed fracture; R41.81 Age-related cognitive decline; Z79.899 Other long term (current) drug therapy; N17.9 Acute kidney failure, unspecified; X58.XXXA Exposure to other specified factors, initial encounter